=== PATIENT | male | born 1945 | race Caucasian/White ===

== ENCOUNTER 2022-06-05 09:58 | Outpatient (RCR) | payer MEDICARE, SELFPAY ==
[2022-06-05 10:11] VITALS: BP 154/75; PULSE 64; RESP 16; TEMP 36.3; O2SAT 96
[2022-06-05] MEDS: SODIUM CHLORIDE 0.9 % (FLUSH) 10 ML SYRINGE IVF (11:16)
[2022-06-05] MEDS: 0.9 % SODIUM CHLORIDE 250 ml IV (11:16)
== END 2022-06-15 23:59 | disposition home or self-care (01) ==
LOC: CCIC 09:58
PROVIDERS: PCP Family Medicine; Visit Provider Clinical Nurse Specialist
DX: C90.00 Multiple myeloma not having achieved remission (principal)
CPT/HCPCS: 99211; J7050

== ENCOUNTER 2022-12-17 10:00 | Outpatient (RCR) | payer MEDICARE, SELFPAY ==
[2022-08-08] MEDS: HEPARIN 500 UNIT/5 ML SYRINGE IVF (10:10)
[2022-08-08] MEDS: SODIUM CHLORIDE 0.9 % (FLUSH) 10 ML SYRINGE IVF (10:10)
[2022-10-14] MEDS: SODIUM CHLORIDE 0.9 % (FLUSH) 10 ML SYRINGE IVF (10:34)
[2022-10-14] MEDS: HEPARIN 500 UNIT/5 ML SYRINGE IVF (10:34)
[2022-12-17] MEDS: SODIUM CHLORIDE 0.9 % (FLUSH) 10 ML SYRINGE IVF (10:07)
[2022-12-17] MEDS: HEPARIN 500 UNIT/5 ML SYRINGE IVF (10:07)
== END 2023-02-04 23:59 | disposition home or self-care (01) ==
LOC: CCIC 10:00
PROVIDERS: PCP Family Medicine; Referring Provider Family Medicine; Visit Provider Clinical Nurse Specialist
DX: C90.00 Multiple myeloma not having achieved remission (principal)
CPT/HCPCS: 99211; J1642

== ENCOUNTER 2023-07-31 11:00 | Outpatient (RCR) | payer MEDICARE, SELFPAY ==
[2023-02-20] MEDS: SODIUM CHLORIDE 0.9 % (FLUSH) 10 ML SYRINGE IVF (13:20)
[2023-02-20] MEDS: HEPARIN 500 UNIT/5 ML SYRINGE IVF (13:20)
[2023-04-29] MEDS: HEPARIN 500 UNIT/5 ML SYRINGE IVF (13:53)
[2023-04-29] MEDS: SODIUM CHLORIDE 0.9 % (FLUSH) 10 ML SYRINGE IVF (13:53)
[2023-06-03] MEDS: SODIUM CHLORIDE 0.9 % (FLUSH) 10 ML SYRINGE IVF (10:08)
[2023-06-03] MEDS: HEPARIN 500 UNIT/5 ML SYRINGE IVF (10:08)
[2023-07-31] MEDS: HEPARIN 500 UNIT/5 ML SYRINGE IVF (13:45)
[2023-07-31] MEDS: SODIUM CHLORIDE 0.9 % (FLUSH) 10 ML SYRINGE IVF (13:45)
== END 2023-08-19 23:59 | disposition home or self-care (01) ==
LOC: CCIC 11:00
PROVIDERS: PCP Family Medicine; Referring Provider Family Medicine; Visit Provider Clinical Nurse Specialist
DX: C90.00 Multiple myeloma not having achieved remission (principal)
CPT/HCPCS: 99211; J1642

== ENCOUNTER 2023-08-26 10:35 | Outpatient (RCR) | payer MEDICARE, SELFPAY ==
[2023-08-26] MEDS: SODIUM CHLORIDE 0.9 % (FLUSH) 10 ML SYRINGE IVF (11:06)
[2023-08-26] MEDS: HEPARIN 500 UNIT/5 ML SYRINGE IVF (11:06)
--- NOTE | 2023-10-06 14:26 | ONC.NURNOTE ---
Gene called to ask for process to remove port instructed to call clinic to set up appt with Dr Galindo for removal- placed 05/[address] Galindo call was transferred to the clinics
== END 2024-02-22 23:59 | disposition home or self-care (01) ==
LOC: CCIC 10:35
PROVIDERS: PCP Family Medicine; Referring Provider Family Medicine; Visit Provider Clinical Nurse Specialist
DX: C90.00 Multiple myeloma not having achieved remission (principal)
CPT/HCPCS: 99211; J1642

== ENCOUNTER 2024-01-08 08:01 | Outpatient (CLI) | payer MEDICARE, SELFPAY ==
--- NOTE | 2024-01-08 08:15 | MR_ITS ---
[address] [address] Phone:?[phone] Fax:?[phone] Referring Physician Information: Shahbaz Vo M.D. [address] [facility] [address] Phone:?[phone] Fax:?[phone] Patient:Fatou Gleason D.O.B:?1945 Sex:?Male Phone:?[phone] [facility] MRN:?[id number] Exam Date:?01/08/2024 EXAM: MRI of the LEFT KNEE, without contrast CLINICAL: Left knee effusion. COMPARISONS: X-rays dated 01/01/2024. TECHNICAL: Multiplanar multisequence MRI of the left knee was obtained. SEDATION: None. CONTRAST: None. FINDINGS: Ligaments: ACL: Intact and unremarkable. PCL: Intact and unremarkable. MCL: Intact and unremarkable. LCL: Intact and unremarkable. Posterolateral corner: Popliteus, biceps femoris, iliotibial band, and the popliteofibular ligament appear intact. Posteromedial corner: Semimembranosus, pes anserine tendons and posterior oblique ligament appear intact. Extensor mechanism: Patellar tendon: Intact, without tendinopathy. Quadriceps tendon: Intact, without tendinopathy. Retinacula: Medial and lateral retinacula are intact. Fat pads: Unremarkable infrapatellar Hoffa's, quadriceps and prefemoral fat pads. Patellofemoral joint: Patella: There is mild heterogeneity of the patellar cartilage. No chondral defects identified. Trochlea: No significant chondromalacia. Medial compartment: Medial meniscus: There mild degenerative signal changes involving the posterior horn and body segments. No evidence of discrete meniscal tear. No meniscal displacement. Medial cartilage: No significant chondromalacia. Lateral compartment: Lateral meniscus: There are mild degenerative signal changes within the anterior and posterior horns. No evidence of discrete meniscal tear or meniscal displacement. Lateral cartilage: Mild heterogeneity of the lateral tibial plateau cartilage. No chondral defects identified. Knee joint: Effusion: Physiologic left knee effusion. Intra-articular bodies:?No convincing bodies identified. Popliteal cyst: Small. Bones: No suspicious bone marrow signal alteration or fracture line. IMPRESSION: 1. No evidence of meniscal tear, ligamentous injury, fracture or joint effusion. 2. 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 No chondral defects identified. 3. Small popliteal cyst. JCZ Electronically signed on 01/08/2024 11:32:00 AM by Larry Kamara D.O.
== END 2024-01-08 08:02 | disposition home or self-care (01) ==
PROVIDERS: PCP Family Medicine; Visit Provider Orthopaedic Surgery Sports Medicine
DX: M25.462 Effusion, left knee (principal); M22.42 Chondromalacia patellae, left knee; M71.22 Synovial cyst of popliteal space [Baker], left knee; M23.92 Unspecified internal derangement of left knee
CPT/HCPCS: 73721

== ENCOUNTER 2024-08-30 11:20 | Outpatient (CLI) | payer MEDICARE, SELFPAY ==
--- OUTSIDE RECORDS SUMMARY | 2024-08-30 11:35 | XMS_ITS ---
Author Organization [facility] Address [address] [place] [address] Care Team Providers Care Tool Supervisor Name Role Phone Elsewhere, Pcp Primary Care Provider Unavailabl e Active Problems * This document contains information received from the source organization and may not represent a complete record from that organization. 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 09/12/2019 Pain Cancer Associated 09/09/2019 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 Past Plans Apheresis Plan Name Start Date Discontinue Date Treatment Medications Discontinue Reason Plan Provider MONONUCLEAR CELL COLLECTION 07/27/2019 12/26/2020 No medications scheduled. Therapy Complete Getachew Ruby M.D., Ph.D. Blood Plan Name Start Date Discontinue Date Treatment Medications Discontinue Reason Plan Provider *BLOOD ADMINISTRATION - RED BLOOD CELLS (RBC) - FOR PATIENTS GREATER THAN 35 KG (UNITS) 01/19/2020 01/19/2020 No medications scheduled. Therapy Complete Luz Freed P.A.-C., M.S. *BLOOD ADMINISTRATION - RED BLOOD CELLS (RBC) - FOR PATIENTS GREATER THAN 35 KG (UNITS) 11/29/2019 11/30/2019 No medications scheduled. Therapy Complete Luz Freed P.A.-C., M.S. Flushes/Hydration Plan Name Start Date Discontinue Date Treatment Medications Discontinue Reason Plan Provider VASCULAR ACCESS PATENCY - IMPLANTED VASCULAR ACCESS DEVICE (IVAD) VENOUS NON-VALVED 09/11/2020 10/04/2021 No medications scheduled. Unlisted - VASCULAR ACCESS PATENCY - IMPLANTED VASCULAR ACCESS DEVICE (IVAD) VENOUS NON-VALVED & VASCULAR ACCESS PATENCY - CENTR... 09/08/2019 09/07/2020 No medications scheduled. Therapy Complete - Hematology / Oncology Treatment 1 Plan Name Start Date Discontinue Date Treatment Medications Discontinue Reason Plan Provider Cycles Daratumumab / Pomalidomide / Dexamethasone 9 10/08/2019 daratumumab (Darzalex)pom alidomide (Pomalyst) Therapy Complete Denice Paredes M.D. Treatment not started Daratumumab / Pomalidomide / Dexamethasone 09/27/20 18 11/02/2018 daratumumab (Darzalex)pom alidomide (Pomalyst) Unlisted Denice Paredes M.D. Treatment not started Hematology / Oncology Treatment 2 Plan Name Start Date Discontinue Date Treatment Medications Discontinue Reason Plan Provider Cycles [facility] [id number] ( Cyclophosphamide / Fludarabine / [id number] ) 019 03/19/2021 cycloPHOSphamide (Cytoxan) IVPB in 250 mL (1 g vial) (Cytoxan)fludarabi ne (Fludara) IVPB (Fludara) Unlisted Getachew Ruby M.D., Ph.D. 1 of 1 cycle started Infusion Therapy 1 Plan Name Start Date Discontinue Date Treatment Medications Discontinue Reason Plan Provider immune globulin (IVIG) 07/17/2020 07/26/2020 No medications scheduled. Therapy Complete Luz Freed P.A.-Bella., M.S. immune globulin (IVIG) 06/08/2020 07/17/2020 No medications scheduled. Therapy Complete Getachew Ruby M.D., Ph.D. immune globulin (IVIG) 05/11/2020 05/16/2020 No medications scheduled. Therapy Complete Peyton Portillo APRN, C.N.P., D.N.P. enoxaparin (LOVENOX) 1 time a day 09/08/2019 04/04/2020 No medications scheduled. Therapy Complete Pinky Nelson P.A.-C. ENOXAPARIN (LOVENOX) 1 TIME A DAY 09/06/2019 09/08/2019 No medications scheduled. Therapy Complete Getachew Ruby M.D., Ph.D. Radiation Treatments * No radiation treatments are documented for this patient in [facility]. Treatments may have been administered in another system. 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 N/A N/A N/A No contact on file * Cell Therapy Appointments (07/31/2024 - 09/30/2024) When Visit Type With Description No appointments Lifetime Dose Tracking * Chemical Lifetime Dose Automatic Entry Manual Entr y Radiation 9 mGy 9 mGy 0 mGy Fluoro Time 1.4 minutes 1.4 minutes 0 minutes DAP (uGy-m2) 225.9 uGy-m2 225.9 uGy-m2 0 uGy-m2 Resolved Problems Problem Noted Date Diagnosed Date Resolved Date Thrombosis Deep Vein Lower Extremity Left 09/06/2019 08/29/2020 Neutropenia Drug Induced 10/13/2016
--- OUTSIDE RECORDS SUMMARY | 2024-08-30 11:35 | XMS_ITS ---
Author Organization [facility] Address [address] [place] [address] Care Team Providers Care Medical Record Transcriber Name Role Phone Unavailable Unavailable Unavailable Surgery Details Not on file Complications Check Surgery Details section. Procedure Estimated Blood Loss Check Surgery Details section. Procedure Findings Check Surgery Details section. Procedure Specimens Taken Check Surgery Details section.
--- OUTSIDE RECORDS SUMMARY | 2024-08-30 11:35 | XMS_ITS | Referral Summary ---
Author Organization [facility] Address [address] [place] [id number] Care Team Providers Care Warehouse Coordinator Name Role Phone Elsewhere, Pcp Primary Care Provider Unavailabl e Source Comments Patient records contain information from all sites at [facility]. For routine questions regarding patient records, call [phone] during business hours, M-F 8:00 AM - 5:00 PM Central Time. Record requests for emergency care only can be directed to [phone] at any time.[facility] Encounters Date Type Department Care Team Description 08/16/2024 9:39 AM CDT - 08/16/2024 11:59 PM CDT Hospital Encounter Department of Laboratory Medicine and Pathology, [facility], in [place], [place] [address] [place] [phone] Getachew Ruby M.D., Ph.D. Multiple Myeloma In Remission (HCC) Discharge Disposition: Home or Self Care 08/16/2024 4:00 PM CDT Office Visit Division of Hematology in [address] [phone] Luz Freed P.A.-C., M.S. Multiple Myeloma In Remission (HCC) (Primary Dx) 08/12/2024 9:30 AM CDT Clinical Communication Virtual Review in [place], [place] 200 [place] [address] 07/07/2024 Orders Only Division of Hematology in [place], [place] [address] [place] [address] Do Olmos Multiple Myeloma In Remission (HCC) (Primary Dx) 06/27/2024 10:10 AM CDT - 06/27/2024 11:59 PM CDT Hospital Encounter Department of Laboratory Medicine and Pathology, [facility], in [place], [place] [address] [place] [address] Getachew Ruby M.D., Ph.D. Multiple Myeloma In Remission (HCC) Discharge Disposition: Home or Self Care from Last 3 Months Allergies No known active allergies Medications * This document contains information received from the source organization and may not represent a complete record from that organization. multivitamin tablet Take 1 tablet by mouth daily. 5 Active hydrocortisone (ANUSOL-HC) 2.5 % rectal cream Apply 1 application topically 2 (two) times a day as needed for hemorrhoids. 6 Active melatonin 1 mg tablet Take 10 mg by mouth at bedtime as needed. Active calcium carbonate-vitam in D3 (Calcium 600 with Vitamin D3) 600 mg(1,500mg) -400 unit tablet,chewable Chew 2 tablets daily. Active acetaminophen (TYLENOL) 500 mg tablet Take 1,000 mg by mouth every 6 (six) hours as needed for pain (as needed for back pain). Active acyclovir (ZOVIRAX) 400 mg tablet take one tablet by mouth twice a day 180 tablet 3 4 Active Active Problems Problem Noted Date Diagnosed Date Hemorrhoids External [...] 0 06/10/2016 Cancer Staging:Clinical stage from 11/03/2013: Djoo-2-pqhrtusdodxwp (mg/L): 2.1, Albumin (g/dL): 4.6, ISS: Stage I, High-risk cytogenetics: Unknown, LDH: Elevated - Signed by Irena Portillo R.N. on 03/07/2018 Resolved Problems Problem Noted Date Diagnosed Date Resolved Date Thrombosis Deep Vein Lower Extremity Left 09/06/2019 08/29/2020 Neutropenia Drug Induced 10/13/2016 Immunizations Name Administration Dates Next Due Cholera, historical 04/27/1973 H1N1 All Forms 11/20/2008 HZV (ZOSTAVAX) 08/09/2009 HepA Adult 07/09/2018,09/06/2015 HepB Adult 06/10/2016,05/22/2015 HepB, Unspecified 07/24/2015 Hib (HbOC) (discontinued) 07/24/2015 Hib (PRP-T) (ACTHIB, HIBERIX) 06/10/2016, 015 IPV 06/10/2016,07/24/2015,05/22/2015 Influenza Split 08/22/2015 Influenza TIV (IM) 08/11/2017 Influenza high dose QV(65 ye ars or older) (PF) 08/26/2022 Influenza, Quadrivalent, Adj uvanted, Preservative Free 09/10/2021 PCV13 07/24/2015,05/22/2015 PPSV23 06/10/2016,07/25/2009 RSV: respiratory syncytial v irus (AREXVY) recombinant vaccine 01/14/2024 RZV (SHINGRIX) 06/16/2018,04/13/2018 SARS-COV-2 (COVID-19) - MODERNA(Discontinued) 12/24/2021,07/11/2021 Td Preservative Free (TENIVAC, DECAVAC) 06/10/20 16,07/24/2015 Td, (Adult) Unspecified 08/24/2000 Tdap 05/22/2015 TyVi (inj) 07/09/2018,09/06/2015,04/27/1973 YF 04/27/1974 Social History Tobacco Use Types Packs/Day Years Used Date Smoking Tobacco: Never Passive Smoke Exposure: Past Smokeless Tobacco: Never Tobacco Cessation:Counseling Given: Not Answered Passive Exposure Comments:My Dad Smoked Alcohol Use Standard Drinks/Week Comments Yes 7 (1 standard drink = 0.6 oz pur e alcohol) 1 glass a week Social Connection and Isolation Panel [NHANES] A nswer Date Recorded In a typical week, how many times do you talk on the phone with family, friends, or neighbors? Once a week 09/30/2020 Frequency of Social Gatherings with Friends and Family Not on file 09/30/2020 How often do you attend christian or gnosticist serv ices? Patient declined 09/30/2020 Active Member of Clubs or Organizations Not on f ile 09/30/2020 Attends Club or Organization Meetings Not on mili e 09/30/2020 Are you , , di vorced, , never , or living with a partner? 09/30/2020 AUDIT-C Answer Date Recorded Frequency of Alcohol Consumption Not on file 09/30/2020 Q2: How many drinks containi ng alcohol do you have on a typical day when you are drinking? 1 or 2 09/30/2020 Q3: How often do you have si x or more drinks on one occasion? Never 09/30/2020 Overall Financial Resource Strain (CARDIA) Answe r Date Recorded Difficulty of Paying Living Expenses Not hard at all 09/07/2019 [facility] - Occupational Stress Questionnaire Answer Date Recorded Do you feel stress - tense, restless, nervous, or anxious, or unable to sleep at night because your mind is troubled all the time - these days? Not at all 09/30/2020 Exercise Vital Sign Answer Date Recorde d Days of Exercise per Week Not on file 2022 On average, how many minutes do you engage in exercise at this level? 30 min 09/24/2023 Hunger Vital Sign Answer Date Recorded Within the past 12 months, y ou worried that your food would run out before you got the money to buy more. Never true 09/24/20 23 Within the past 12 months, t he food you bought just didn't last and you didn't have money to get more. Never true 09/24/2023 PRAPARE - Transportation Answer Date Re corded In the past 12 months, has l ack of transportation kept you from medical appointments or from getting medications? No 07/2023 In the past 12 months, has l ack of transportation kept you from meetings, work, or from getting things needed for daily living? No 09/24/2023 Nutrition Answer Date Recorded On average, how many serving s of fruits and vegetables do you eat per day (serving size is equal to 1 cup or approximately the size of a tennis ball)? 3-5 09/24/2023 Dental Answer Date Recorded Dental: Regular Dentist Yes 11/12/20 22 Housing Stability Answer Date Recorded What is your living situation today? I have a [facility] place to live 09/24/2023 Education Answer Date Recorded What is the highest level of school you have completed or the highest degree you have received? Bachelor's degree (e.g., BA, AB, BS) 09/30/2020 Sex and Gender Information Value Date Recorded Sex Assigned at Male 03/22/2020 11:41 AM CDT Legal Sex Male 4:37 AM RN MENTAL HEALTH Gender Identity Male 03/22/2020 11:41 AM CDT Sexual Orientation Straight 03/22/2020 11 :41 AM CDT Last Filed Vital Signs Vital Sign Reading Time Taken Comments Blood Pressure 167/69 08/16/2024 3:47 PM CDT Pulse 61 08/16/2024 3:47 PM CDT Temperature 35.6 ??C (96.1 ??F) 08/16/2024 3:47 PM CD T Respiratory Rate 16 08/16/2024 3:47 PM CDT Oxygen Saturation 96% 08/16/2024 3:47 PM CDT Inhaled Oxygen Concentration - - Weight 78.5 kg (173 lb 2.7 oz) 08/16/2024 3:47 P M CDT Height 168.2 cm (5' 6.22) 08/16/2024 3:47 PM CD T Body Mass Index 27.77 08/16/2024 3:47 PM CDT Plan of Treatment Not on file Medical Devices Implanted Type Area Photonic Laboratory Technician Device Identifier Shelf Expiration Date Model / Serial / Lot Implantable Port-05/23/2019 Implanted:05/23 (Quantity not on file) Implantable Port Right: Chest Description:Bard Power Port Card with implanted date recorded as 05/23/2019 (Port placed at outside facility in [facility] per patient report). Ocular Lens Ocular Lens Eye Ocular Lens Ocular Lens Eye Procedures Procedure Name Priority Date/Time Associated Diagnosis Comments PHOSPHORUS (INORGANIC), S Routine 08/16/2024 10:12 AM CDT Multiple Myeloma In Remission (HCC) URIC ACID, S/P Routine 08/16/2024 10:12 AM CDT Multiple Myeloma In Remission (HCC) PROTEIN, TOTAL, S/P Routine 08/16/2024 1 0:12 AM CDT Multiple Myeloma In Remission (HCC) GLUCOSE, RANDOM, S/P Routine 08/16/2024 10:12 AM CDT Multiple Myeloma In Remission (HCC) LACTATE DEHYDROGENASE (LD), S Routine 08/16/2024 10:12 AM CDT Multiple Myeloma In Remission (HCC) BUN (BLOOD UREA NITROGEN), S/P Routine 08/16/2024 10:12 AM CDT Multiple Myeloma In Remission (HCC) BILIRUBIN, TOT, S/P Routine 08/16/2024 1 0:12 AM CDT Multiple Myeloma In Remission (HCC) ALANINE AMINOTRANSFERASE (ALT), S/P Routine 08/16/2024 10:12 AM CDT Multiple Myeloma In Remission (HCC) IMMUNOGLOBULIN E (IGE), S Routine 08/16/2024 10:12 AM CDT Multiple Myeloma In Remission (HCC) IMMUNOGLOBULIN D (IGD), S Routine 08/16/2024 10:12 AM CDT Multiple Myeloma In Remission (HCC) QUANTITATIVE M-PROTEIN STUDY, S Routine 08/16/2024 10:12 AM CDT Multiple Myeloma In Remission (HCC) SODIUM, S/P Routine 08/16/2024 10:12 AM CDT Multiple Myeloma In Remission (HCC) POTASSIUM, S/P Routine 08/16/2024 10:12 AM CDT Multiple Myeloma In Remission (HCC) IMMUNOGLOBULIN FREE LIGHT CHAINS, S Routine 08/16/2024 10:12 AM CDT Multiple Myeloma In Remission (HCC) CREATININE WITH EGFR, S/P Routine 08/16/2024 10:12 AM CDT Multiple Myeloma In Remission (HCC) CBC NO CALL BACK, REFLEX T/S Routine 08/16/2024 10:12 AM CDT Multiple Myeloma In Remission (HCC) CALCIUM, TOT, S/P Routine 08/16/2024 10: 12 AM CDT Multiple Myeloma In Remission (HCC) ASPARTATE AMINOTRANSFERASE (AST), S/P Routine 08/16/2024 10:12 AM CDT Multiple Myeloma In Remission (HCC) ALKALINE PHOSPHATASE, S/P Routine 08/16/2024 10:12 AM CDT Multiple Myeloma In Remission (HCC) ALBUMIN, S/P Routine 08/16/2024 10:12 AM CDT Multiple Myeloma In Remission (HCC) M-PROTEIN MASS-FIX, 24 HR, U Routine 08/03/2024 6:30 AM CDT ELECTROPHORESIS, PROTEIN, 24 HR, U Routine 08/03/2024 6:30 AM CDT Multiple Myeloma In Remission (HCC) LIPID PANEL, S Routine 12/31/2020 10:05 AM RN MENTAL HEALTH Screening Lipid URINALYSIS WITH MICROSCOPIC STAT 12/26/2019 10:12 PM RN MENTAL HEALTH 25-HYDROXYVITAMIN D2 AND D3, S Routine 06/10/2016 7:28 AM CDT THYROID FUNCTION CASCADE, S Routine 09/21/2015 10:54 AM RN MENTAL HEALTH PULMONARY FUNCTION TESTS Routine 014 8:10 AM CDT from Last 3 Months or Most Recently Relevant to Health Maintenance Results * (ABNORMAL) Quantitative M-protein Study (08/16/2024 10:12 AM CDT) Immunoglobulin A (IgA), S 106 61 - 356 mg/dL 08/16/2024 5:38 PM CDT [facility] Immunoglobulin M (IgM), S 309(H) 37 - 286 mg/dL 08/16/2024 5:37 PM CDT [facility] Immunoglobulin G (IgG), S 748(L) 767 - 1590 mg/dL 08/16/2024 5:37 PM CDT [facility] Therapeutic Antibody Administered? Unspecified 08/16/2024 1:55 PM CDT [facility] Flag, M-protein Isotype Negative Negative 08/17/2024 2:54 PM CDT [facility] QMPTS Interpretation No monoclonal protein detected. 08/17/2024 2:54 PM CDT [facility] Comment: ----ADDITIONAL INFORMATION---- The submitted sample was assayed by five separate immunopurifications for IgG, IgA, IgM, kappa and lambda. ??The result reflects the findings of either no monoclonal protein detected or those monoclonal immunoglobulins that were detected. This test was developed and its performance characteristics determined by [facility] in a manner consistent with CLIA requirements. This test has not been cleared or approved by the U.S. Food and Drug Administration. Blood (Blood, Venous) 08/16/2024 10:12 AM CDT 08/16/2024 3:17 PM CDT Narrative [facility] - 08/17/2024 2:54 PM CDT Specimen Information: Specimen ID: [id number] Specimen Type: Blood Specimen Collection Start Date: 08/16/2024 10:12 AM Specimen Received Date: 08/16/2024 ??3:17 PM Specimen ID: [id number] Specimen Type: Blood Specimen Collection Start Date: 08/16/2024 10:12 AM Specimen Received Date: 08/16/2024 ??1:55 PM us Getachew Ruby M.D., Ph.D. LAB BLOOD ADD-ON Final Result [facility] [address] [place] [address] [facility] [address] [place] [address] [facility] [address] [place] [address] [place] [address] * (ABNORMAL) CBC no call back, reflex T/S HGB <8 (08/16/2024 10:12 AM CDT) Hemoglobin 15.1 13.2 - 16.6 g/dL 08/16/2024 11:42 AM CDT DTL Hematocrit 44.6 38.3 - 48.6 % 08/16/2024 11:42 AM CDT DTL Erythrocytes 4.64 4.35 - 5.65 x10(12)/L 08/16/2024 11:42 AM CDT DTL MCV 96.1 78.2 - 97.9 fL 08/16/2024 11:42 AM CDT DTL RBC Distrib Width 12.4 11.8 - 14.5 % 08/16/2024 11:42 AM CDT DTL Platelet Count 115(L) 135 - 317 x10(9)/L 08/16/2024 11:42 AM CDT DTL Leukocytes 4.4 3.4 - 9.6 x10(9)/L 08/16/2024 11:42 AM CDT DTL Neutrophils 2.56 1.56 - 6.45 x10(9)/L 08/16/2024 11:42 AM CDT DHPM Lymphocytes 1.29 0.95 - 3.07 x10(9)/L 08/16/2024 11:42 AM CDT DTL Monocytes 0.46 0.26 - 0.81 x10(9)/L 08/16/2024 11:42 AM CDT DTL Eosinophils 0.03 0.03 - 0.48 x10(9)/L 08/16/2024 11:42 AM CDT DTL Basophils <0.03 0.01 - 0.08 x10(9)/L 08/16/2024 11:42 AM CDT DTL Blood (Blood, Venous) 08/16/2024 10:12 AM CDT 08/16/2024 10:37 AM CDT Getachew Ruby M.D., Ph.D. LAB BLOOD NON ADD-ON Fi nal Result [facility] [address] [place] [address], [place] DTL [facility] [address] [place] [address] DHPM [facility] [address] [place] [address] * Immunoglobulin D (IgD) (08/16/2024 10:12 AM CDT) Immunoglobulin D (IgD), S <2 <=10 mg/dL 08/17/2024 9:30 AM CDT [facility] Blood (Blood, Venous) 08/16/2024 10:12 AM CDT 08/17/2024 6:17 AM CDT us Getachew Ruby M.D., Ph.D. LAB BLOOD ADD-ON Final Result [facility] [address] [place] [address] [facility] [address] [place] [address] * Immunoglobulin Free Light Chains (08/16/2024 10:12 AM CDT) [place] Free Light Chain, S 1.26 0.3300 - 1.94 mg/dL 08/16/2024 3:36 PM CDT [facility] Lambda Free Light Chain, S 1.28 0.5700 - 2.63 mg/dL 08/16/2024 3:37 PM CDT [facility] [place]/Lambda FLC Ratio 0.9844 0.2600 - 1.65 08/16/2024 3:37 PM CDT [facility] Blood (Blood, Venous) 08/16/2024 10:12 AM CDT 08/16/2024 1:59 PM CDT us Getachew Ruby M.D., Ph.D. LAB BLOOD ADD-ON Final Result [facility] [address] [place] [address] [facility] [address] [place] [address] * Uric Acid (08/16/2024 10:12 AM CDT) Uric Acid, S 6.4 3.7 - 8.0 mg/dL 08/16/2024 11:13 AM CDT DTL Blood (Blood, Venous) 08/16/2024 10:12 AM CDT 08/16/2024 10:51 AM CDT us Getachew Ruby M.D., Ph.D. LAB BLOOD ADD-ON Final Result [facility] [address] [place] [address], [facility] [address] [place] [address] * BUN (Blood Urea Nitrogen) (08/16/2024 10:12 AM CDT) BUN (Blood Urea Nitrogen), S 17 8 - 24 mg/dL 08/16/2024 11:13 AM CDT DTL Blood (Blood, Venous) 08/16/2024 10:12 AM CDT 08/16/2024 10:51 AM CDT Getachew Ruby M.D., Ph.D. LAB BLOOD ADD-ON Final Result [facility] [address] [place] [address], [facility] [address] [place] [address] * ALT (Alanine Aminotransferase) (08/16/2024 10:12 AM CDT) Alanine Aminotransferase (ALT), S 20 7 - 55 U/L 08/16/2024 11:13 AM CDT DTL Blood (Blood, Venous) 08/16/2024 10:12 AM CDT 08/16/2024 10:51 AM CDT Getachew Ruby M.D., Ph.D. LAB BLOOD ADD-ON Final Result [facility] [address] [place] [address] * AST (Aspartate Aminotransferase) (08/16/2024 10:12 AM CDT) Aspartate Aminotransferase (AST), S 25 8 - 48 U/L 08/16/2024 11:13 AM CDT DT Blood (Blood, Venous) 08/16/2024 10:12 AM CDT 08/16/2024 10:51 AM CDT Getachew Ruby M.D., Ph.D. LAB BLOOD ADD-ON Final Result Performing Organization Address City/[facility]/ZIP Co de Phone Number [facility] [address] [place], [place] [id number] [place] [address] 200 [place] [address] * Sodium (08/16/2024 10:12 AM CDT) Sodium, S 141 135 - 145 mmol/L 08/16/2024 11:13 AM CDT DT Blood (Blood, Venous) 08/16/2024 10:12 AM CDT 08/16/2024 10:51 AM CDT Getachew Ruby M.D., Ph.D. LAB BLOOD ADD-ON Final Result [facility] [address] [place], [place] [phone] [place] [address] [address] [place] [address] * Protein, Total (08/16/2024 10:12 AM CDT) Protein, Total, S 6.7 6.3 - 7.9 g/dL 08/16/2024 11:13 AM CDT DTL Blood (Blood, Venous) 08/16/2024 10:12 AM CDT 08/16/2024 10:51 AM CDT Getachew Ruby M.D., Ph.D. LAB BLOOD ADD-ON Final Result [facility] [address] [place], [place] [phone] [place] [address] 200 [place] [address] * Potassium (08/16/2024 10:12 AM CDT) Pathologist [facility] Potassium, S 4.9 3.6 - 5.2 mmol/L 08/16/2024 11:13 AM CDT DT Blood (Blood, Venous) 08/16/2024 10:12 AM CDT 08/16/2024 10:51 AM CDT Getachew Ruby M.D., Ph.D. LAB BLOOD ADD-ON Final Result [facility] [address] [place], [place] [phone] [place] [address] 200 [place] [address] * Phosphorus Inorganic (08/16/2024 10:12 AM CDT) Phosphorus (Inorganic), S 3.5 2.5 - 4.5 mg/dL 08/16/2024 11:13 AM CDT DTL Blood (Blood, Venous) 08/16/2024 10:12 AM CDT 08/16/2024 10:51 AM CDT Getachew Ruby M.D., Ph.D. LAB BLOOD ADD-ON Final Result [facility] [address] [place] [address], [facility] [address] [place] [address] * Alkaline Phosphatase (08/16/2024 10:12 AM CDT) Alkaline Phosphatase, S 55 40 - 129 U/L 08/16/2024 11:13 AM CDT DTL Blood (Blood, Venous) 08/16/2024 10:12 AM CDT 08/16/2024 10:51 AM CDT Getachew Ruby M.D., Ph.D. LAB BLOOD ADD-ON Final Result Performing Organization Address City/[facility] Co de Phone Number [facility] [address] [place] [address], [facility] 200 [place] [address] * (ABNORMAL) LD (Lactate Dehydrogenase) (08/16/2024 10:12 AM CDT) Lactate Dehydrogenase (LD), S 237(H) 122 - 222 U/L 08/16/2024 11:13 AM CDT DTL Blood (Blood, Venous) 08/16/2024 10:12 AM CDT 08/16/2024 10:51 AM CDT Getachew Ruby M.D., Ph.D. LAB BLOOD NON ADD-ON Fi nal Result Performing Organization Address City/[facility]/ZIP Co de Phone Number [facility] [address] [place] [address], [facility] [address] [place] [address] * Glucose, Random (08/16/2024 10:12 AM CDT) Glucose, S 97 70 - 140 mg/dL 08/16/2024 11:13 AM CDT DT Blood (Blood, Venous) 08/16/2024 10:12 AM CDT 08/16/2024 10:51 AM CDT Getachew Ruby M.D., Ph.D. LAB BLOOD TROPONIN Demetrice l Result Performing Organization Address City/[facility]/ZIP Co de Phone Number [facility] [address] [place] [address], [facility] [address] [place] [address] * Immunoglobulin E (IgE) (08/16/2024 10:12 AM CDT) Immunoglobulin E (IgE), S 10.5 <=214 kU/L 08/16/2024 5:54 PM CDT [facility] Blood (Blood, Venous) 08/16/2024 10:12 AM CDT 08/16/2024 3:55 PM CDT Getachew Ruby M.D., Ph.D. LAB BLOOD ADD-ON Final Result Performing Organization Address [facility] Co de Phone Number [facility] [address] [place] [address] [facility] [address] [place] [address] * Creatinine with Estimated GFR (08/16/2024 10:12 AM CDT) Creatinine 1.20 0.74 - 1.35 mg/dL 08/16/2024 11:13 AM CDT DTL Estimated GFR (eGFR) 61 >=60 mL/min/BSA 08/16/2024 11:13 AM CDT DTL Comment: Estimated GFR calculated using the 2020 CKD_EPI creatinine equation. Blood (Blood, Venous) 08/16/2024 10:12 AM CDT 08/16/2024 10:51 AM CDT Getachew Ruby M.D., Ph.D. LAB BLOOD ADD-ON Final Result [facility] [address] [place] [address], [facility] [address] [place] [address] * Calcium, Total (08/16/2024 10:12 AM CDT) Calcium, Total, S 9.5 8.8 - 10.2 mg/dL 08/16/2024 11:13 AM CDT DTL Blood (Blood, Venous) 08/16/2024 10:12 AM CDT 08/16/2024 10:51 AM CDT Getachew Ruby M.D., Ph.D. LAB BLOOD ADD-ON Final Result Performing Organization Address City/[facility]/ZIP Co de Phone Number [facility] [address] [place] [address], [facility] [address] [place] [address] * (ABNORMAL) Bilirubin, Total (08/16/2024 10:12 AM CDT) Bilirubin, Total, S 1.4(H) 0.0 - 1.2 mg/dL 08/16/2024 11:13 AM CDT DTL Blood (Blood, Venous) 08/16/2024 10:12 AM CDT 08/16/2024 10:51 AM CDT Getachew Ruby M.D., Ph.D. LAB BLOOD ADD-ON Final Result [facility] [address] [place] [address], [facility] 200 [place] [address] * Albumin (08/16/2024 10:12 AM CDT) Albumin, S 4.6 3.5 - 5.0 g/dL 08/16/2024 11:13 AM CDT DTL Blood (Blood, Venous) 08/16/2024 10:12 AM CDT 08/16/2024 10:51 AM CDT Getachew Ruby M.D., Ph.D. LAB BLOOD ADD-ON Final Result Performing Organization Address [facility] Co de Phone Number [facility] [address] [place] [address], [place] DTL [facility] [address] [place] [address] * M-protein Isotype, Mass-Fix Matrix-Assisted Laser Desorption/Ionization Czzd-tx-Xygyxn Mass Spectrometry, 24 hour, Urine (08/03/2024 6:30 AM CDT) Flag M-protein Isotype MS, 24 HR, U Negative Negative 08/11/2024 3:52 PM CDT [facility] M-protein Isotype MS, 24 HR, U No monoclonal protein detected. 08/11/2024 3:52 PM CDT [facility] Comment: ----ADDITIONAL INFORMATION---- The submitted sample was assayed by five separate immunopurifications for IgG, IgA, IgM, kappa and lambda. ??The result reflects the findings of either no monoclonal protein detected or those monoclonal immunoglobulins that were detected. This test was developed and its performance characteristics determined by [facility] in a manner consistent with CLIA requirements. This test has not been cleared or approved by the U.S. Food and Drug Administration. Urine 08/03/2024 6:30 AM CDT 08/05/2024 2:51 PM CDT Narrative Resulting Agency Comment Mailed In Specimen Getachew Ruby M.D., Ph.D. LAB URINE ORDERABLES Fi nal Result Performing Organization Address [facility]/ZIP Co de Phone Number [facility] [address] [place] [address] [facility] [address] [place] [address] [place] [address] * Electrophoresis, Protein, 24 hour, Urine (08/03/2024 6:30 AM CDT) Total Protein, 24 HR, U 78 <229 mg/24 h 08/05/2024 1:17 PM CDT DTL Collection Duration 24 h 08/05/2024 10:59 AM CDT DTL Urine Volume 1550 mL 08/05/2024 10:59 AM CDT DTL Albumin, mg/24 h 30.4 mg/24 h 08/09/2024 9:04 AM CDT [facility] Alpha-1 globulin, mg/24 h 4.7 mg/24 h 08/09/2024 9:04 AM CDT [facility] Alpha-2 globulin, mg/24 h 14.0 mg/24 h 08/09/2024 9:04 AM CDT [facility] Beta globulin, mg/24 h 17.9 mg/24 h 08/09/2024 9:04 AM CDT [facility] Gamma globulin, mg/24 h 11.7 mg/24 h 08/09/2024 9:04 AM CDT [facility] A/G Ratio 0.63 08/09/2024 9:04 AM CDT [facility] Impression All fractions present, no apparent M-spike. See Isotype. 08/09/2024 9:04 AM CDT [facility] Urine (Urine, 24 Hours) 08/03/2024 6:30 AM CDT 08/05/2024 2:51 PM CDT Narrative Resulting Agency Comment Mailed In Specimen Getachew Ruby M.D., Ph.D. LAB URINE ORDERABLES Fi nal Result [facility] [address] [place] [address] [facility] [address] [place] [address] [facility] [address] [place] [address] [place] [address] * (ABNORMAL) Lipid Panel (12/31/2020 10:05 AM RN MENTAL HEALTH) [facility] Cholesterol, Total 179 mg/dL 2020 1:05 PM RN MENTAL HEALTH DTL Comment: ----REFERENCE VALUE---- Desirable: < 200 Borderline high: 200 - 239 High: > or = 240 Triglycerides 209(H) mg/dL 12/31/2020 1:05 PM RN MENTAL HEALTH DTL Comment: ----REFERENCE VALUE---- Normal: <150 Borderline high: 150-199 High: 200-499 Very high: > or =500 Cholesterol, HDL, S 59 >=40 mg/dL 12/31/2020 1:05 PM [facility] Calculated LDL 78 mg/dL 12/31/2020 1:05 PM [facility] Comment: ----REFERENCE VALUE---- Desirable: <100 Above Desirable: 100-129 Borderline high: 130-159 High: 160-189 Very high: > or =190 Cholesterol, Non-HDL, Calculated 120 mg/dL 12/31/2020 1:05 PM [facility] Comment: ----REFERENCE VALUE---- Desirable: <130 Above Desirable: 130-159 Borderline high: 160-189 High: 190-219 Very high: > or =220 Blood (Blood, Venous) 12/31/2020 10:05 AM RN [facility] 12/31/2020 12:38 PM [facility] Luz Freed P.A.-C., M.S. LAB BLOOD ADD[place] [address], [place] [address] * (ABNORMAL) Urinalysis with Microscopic: Urine, Midstream (12/26/2019 10:12 PM RN [facility]) Source Midstream 12/26/2019 10:37 PM RN [facility] Appearance Normal Normal 12/27/2019 1:58 AM RN [facility] Osmolality, U 397 150 - 1150 mOsm/kg 12/27/2019 12:33 AM [facility] pH, U 5.9 4.5 - 8.0 12/27/2019 12:33 AM [facility] Comment: ----ADDITIONAL INFORMATION---- This test was developed and its performance characteristics determined by [facility] in a manner consistent with CLIA requirements. This test has not been cleared or approved by the [place]. Food and Drug Administration. Glucose 3 0 - 15 mg/dL 12/27/2019 1:58 AM [facility] Protein, U 21 <26 mg/dL 12/27/2019 1:58 AM [facility] Comment: ----ADDITIONAL INFORMATION---- On 05/12/2017 the total protein assay method changed resulting in approximately a 15% increase in protein values. Protein/Osmolality 0.53(H) <0.42 Ratio 12/27 1:58 AM [facility] Comment: ----ADDITIONAL INFORMATION---- On 05/12/2017 the total protein assay method changed resulting in approximately a 15% increase in protein values. Predicted 24 Hr Protein 513 mg/24 h 12/27/2019 1:58 AM [facility] Predicted Range 163-1617 mg/24 h 0 1:58 AM RN [facility] Hemoglobin, QL Negative Negative 12/26/2019 11:18 PM RN [facility] Urine (Urine, Midstream) 12/26/2019 10:12 PM RN [facility] 12/26/2019 10:37 PM [facility] Raf Oshea M.D. LAB URINE ORDERABLES Final Result Performing Organization Address City/State/[facility] Co de Phone Number [facility] [address] [place] [address], [facility]IGRE [facility] [address] [place] [address] * 25-Hydroxyvitamin D2 and D3 (06/10/2016 7:28 AM CDT) 25-Hydroxy D Total 47 SeeComment NG/ML [facility] Comment: ? REFERENCE VALUE ? 25-HYDROXY D TOTAL (D2+D3) Optimum levels in the healthy ? population are 20-50, patients with bone disease may ? benefit from higher levels within this range. ? 25-Hydroxy D2 <4.0 NG/ML [facility] 25-Hydroxy D3 47 NG/ML [facility] 06/10/2016 7:28 AM CDT 06/10/2016 7:28 AM CDT us Getachew Ruby M.D., Ph.D. LAB BLOOD ADD-ON Final Result [facility] [address] [place] [address], [facility] * Thyroid Function [place] (09/21/2015 10:54 AM RN [facility]) TSH, Sensitive 3.9 0.3 - 4.2 MIU/L [facility] 09/21/2015 10:5 4 AM RN [facility] 09/21/2015 10:54 AM [facility] Getachew Ruby M.D., Ph.D. LAB BLOOD ADD-ON Final Result Performing Organization Address City/[facility]/ZIP Co de Phone Number [facility] [address] * Pulmonary Function Tests (03/31/2014 8:10 AM CDT) 03/31/2014 8:10 AM CDT us Historical Provider PFT ORDERABLES Final Result Performing Organization Address [facility] Co de Phone Number [facility] [address] from Last 3 Months or Most Recently Relevant to Health Maintenance Insurance [facility] Advance Directives For more information, please contact: [phone] * Full Code (Latest Code Status on File) Date Activated Date Inactivated Comments 12/27/2019 2:33 AM 12/29/2019 3:20 PM Question Answer Comments Full Code: Discussed * Full Code Date Activated Date Inactivated Comments 10/03/2019 11:11 AM 10/08/2019 2:38 PM Question Answer Comments Full Code: Discussed * Full Code Date Activated Date Inactivated Comments 09/13/2019 4:17 PM 09/23/2019 2:23 PM Question Answer Comments Full Code: Discussed Care Teams Warehouse Coordinator Relationship Specialty Start Date End Date Elsewhere, Pcp PCP - General Family Medicine 06/30/23
--- OUTSIDE RECORDS SUMMARY | 2024-08-30 11:35 | XMS_ITS | Clinical Summary ---
Author Organization [facility] Address [address] [place] [address] Care Team Providers Care Repair Supervisor Name Role Phone Elsewhere, Pcp Primary Care Provider Unavailabl e Source Comments Patient records contain information from all sites at [facility]. For routine questions regarding patient records, call [phone] during business hours, M-F 8:00 AM - 5:00 PM Central Time. Record requests for emergency care only can be directed to [phone] at any time.[facility] Allergies No known active allergies Medications * [...] 0 06/10/2016 Cancer Staging:Clinical stage from 11/03/2013: Fyzj-[id number]-leaaeyxxlmsgy (mg/L): 2.1, Albumin (g/dL): 4.6, ISS: Stage I, High-risk cytogenetics: Unknown, LDH: Elevated - Signed by Irena Portillo RJoel on 03/07/2018 Resolved Problems Problem Noted Date Diagnosed Date Resolved Date Thrombosis Deep Vein Lower Extremity Left 09/06/2019 08/29/2020 Neutropenia Drug Induced 10/13/2016 Encounters Date Type Department Care Team Description 08/16/2024 4:00 PM CDT Office Visit Division of Hematology in [address] [phone] Luz Freed P.A.-C., M.S. Multiple Myeloma In Remission (HCC) (Primary Dx) 08/16/2024 9:39 AM CDT - 08/16/2024 11:59 PM CDT Hospital Encounter Department of Laboratory Medicine and Pathology, [facility], in [place], [place] [address] [place] [phone] Getachew Ruby M.D., Ph.D. Multiple Myeloma In Remission (HCC) Discharge Disposition: Home or Self Care 08/12/2024 9:30 AM CDT Clinical Communication Virtual Review in [place], [place] [address] [place] [address] 07/07/2024 Orders Only Division of Hematology in [place], [place] [address] [place] [address] Do Olmos Multiple Myeloma In Remission (HCC) (Primary Dx) 06/27/2024 10:10 AM CDT - 06/27/2024 11:59 PM CDT Hospital Encounter Department of Laboratory Medicine and Pathology, [facility], in [place], [place] [address] [place] [address] Getachew Ruby M.D., Ph.D. Multiple Myeloma In Remission (HCC) Discharge Disposition: Home or Self Care from Last 3 Months Immunizations Name Administration Dates Next Due Cholera, [...] Tdap 05/22/2015 TyVi (inj) 07/09/2018,09/06/2015,[birth year]/27/1974 YF 04/27/1974 Family History Medical History Relation Name Comments Stroke Father Leukemia Mother No Known Problems Sister Relation Name Status Comments Father Mother Sister Social History Tobacco Use Types Packs/Day Years [...] file 09/30/2020 How often do you attend druze or jew serv ices? Patient declined 09/30/2020 Active Member [...] Living Expenses Not hard at all 09/07/2019 [facility] - Occupational Stress [...] Date Recorded Dental: Regular Dentist Yes 11/12/20 Housing Stability Answer Date Recorded What is your living situation today? [facility] 09/24/2023 Education Answer Date Recorded What is the highest level of school you have completed or the highest degree you have received? Bachelor's degree (e.g., BA, AB, BS) 09/30/2020 Sex and Gender Information Value Date Recorded Sex Assigned at Male 03/22/2020 11:41 AM CDT Legal Sex Male 4:37 AM RUBBER TESTER Gender Identity Male 03/22/2020 11:41 AM CDT [...] 08/16/2024 3:47 PM CDT Plan of Treatment Health Maintenance Due Date Last Done Comments Bone Density Scan Monitoring 1945 Dental Prophylaxis 1945 Dilated Eye Exam 1944 PSA: Prostate Cancer Screening 1944 Spirometry with DLCO or PFT 03/31/2015 03/31/2014, 0 03/31/2014 Thyroid Function [place] 09/21/2016 09/21/2015 Vitamin D Testing 06/10/2017 06/10/2016, 09/21/2015 Urinalysis 06/25/2020 12/26/2019, 1101/2019, 09/21/2015, Additional history exists Depression Screening (Annual PHQ-2) 11/16/2023 Fall Risk Screen (Annual) 11/16/2023 Lipid (Cholesterol) Screening 02/27/2024 02/26/2023, 12/31/2020 COVID-19 Vaccine (2023-12 5 season) 2024 03/30/2023, 09/01/2022, 12/24/2021, Additional history exists Influenza Vaccine (#1) 2024 , 08/26/2022, 09/10/2021, Additional history exists Serum Protein Electrophoresi s (SPEP) 08/16/2025 08/16/2024, 08/03/2024, 05/05/2024, Additional history exists DTaP,Tdap,and Td Vaccines (5 - Td or Tdap) 03/16/2033 03/16/2023, 06/10/2016, 07/24/2015, Additional history exists Hepatitis B Vaccines Completed 06/10/2016, 07/24/2015, 05/22/2015 Pneumococcal vaccine (65+ years) Completed 06/10/2016, 07/24/2015, 05/22/2015, Additional history exists Hepatitis A Vaccines Completed 07/09/2018, 09/06/20 15 Zoster Vaccines Completed 07/17/2018, 11/2017, 04/13/2018, Additional history exists RSV vaccine - (32-3 6 weeks) or 60+ years Completed 01/14/2024 HPV Vaccines Aged Out No longer eligi ble based on patient's age to complete this topic Medical Devices Implanted Type Area Loop Sewer Device Identifier Shelf Expiration Date Model / [...] LIPID PANEL, S Routine 12/31/2020 10:05 AM RUBBER TESTER Screening Lipid URINALYSIS WITH MICROSCOPIC STAT 12/26/2019 10:12 PM RUBBER TESTER 25-HYDROXYVITAMIN D2 AND D3, S Routine 06/10/2016 7:28 AM CDT THYROID FUNCTION CASCADE, S Routine 09/21/2015 10:54 AM RUBBER TESTER PULMONARY FUNCTION TESTS Routine 014 8:10 AM [...] developed and its performance characteristics determined by [facility] in a manner consistent with CLIA requirements. This test has not been cleared or approved by the U.S. Food and Drug Administration. Blood (Blood, Venous) 08/16/2024 10:12 AM CDT 08/16/2024 3:17 PM CDT Narrative [facility] - 08/17/2024 2:54 PM CDT Specimen Information: Specimen ID: [id number] Specimen Type: Blood Specimen Collection Start Date: 08/16/2024 10:12 AM Specimen Received Date: 08/16/2024 ??3:17 PM Specimen ID: [id number] Specimen Type: Blood Specimen Collection Start Date: 08/16/2024 10:12 AM Specimen Received Date: 08/16/2024 ??1:55 PM us Getachew Ruby M.D., Ph.D. LAB BLOOD ADD-ON Final Result [facility] [address] [place] [address] [facility] [address] [place] [address] [facility] [address] [place] [address] [place] [address] * (ABNORMAL) CBC no call back, reflex [...] LAB BLOOD NON ADD-ON Fi nal Result [facility] [address] [place] [address], [place] D[place] [facility] [address] [place] [address] [facility] [address] [place] [address] * Immunoglobulin D (IgD) (08/16/2024 10:12 AM CDT) Immunoglobulin D (IgD), S <2 <=10 mg/dL 08/17/2024 9:30 AM CDT [facility] Blood (Blood, Venous) 08/16/2024 10:12 AM CDT 08/17/2024 6:17 AM CDT us Getachew Ruby M.D., Ph.D. LAB BLOOD ADD-ON Final Result [facility] [address] [address] [facility] [address] [place] [address] * Immunoglobulin Free Light Chains (08/16/2024 10:12 AM CDT) Calhoun Free Light Chain, S 1.26 0.3300 - 1.94 mg/dL 08/16/2024 3:36 PM CDT SDSC Lambda Free Light Chain, S 1.28 0.5700 - 2.63 mg/dL 08/16/2024 3:37 PM CDT [facility] Calhoun/Lambda FLC Ratio 0.9844 0.2600 - 1.65 08/16/2024 3:37 PM CDT [facility] Blood (Blood, Venous) 08/16/2024 10:12 AM CDT 08/16/2024 1:59 PM CDT Getachew Ruby M.D., Ph.D. LAB BLOOD ADD-ON Final Result [facility] [address] [place] [address] [facility] [address] [place] [address] * Uric Acid (08/16/2024 10:12 AM CDT) Uric Acid, S 6.4 3.7 - 8.0 mg/dL 08/16/2024 11:13 AM CDT DTL Blood (Blood, Venous) 08/16/2024 10:12 AM CDT 08/16/2024 10:51 AM CDT us Getachew Ruby M.D., Ph.D. LAB BLOOD ADD-ON Final Result [facility] [address] [place] [address], [facility] [address] [place] [address] * BUN (Blood Urea Nitrogen) (08/16/2024 10:12 AM CDT) BUN (Blood Urea Nitrogen), S 17 8 - 24 mg/dL 08/16/2024 11:13 AM CDT DTL Blood (Blood, Venous) 08/16/2024 10:12 AM CDT 08/16/2024 10:51 AM CDT Getachew uRby M.D., Ph.D. LAB BLOOD ADD-ON Final Result [facility] [address] [place] [address], [facility] [address] [place] [address] * ALT (Alanine Aminotransferase) (08/16/2024 10:12 AM CDT) Alanine Aminotransferase (ALT), S 20 7 - 55 U/L 08/16/2024 11:13 AM CDT DTL Blood (Blood, Venous) 08/16/2024 10:12 AM CDT 08/16/2024 10:51 AM CDT Getachew Ruby M.D., Ph.D. LAB BLOOD ADD-ON Final Result [facility] [address] [place] [address] * AST (Aspartate Aminotransferase) (08/16/2024 10:12 AM CDT) Aspartate Aminotransferase (AST), S 25 8 - 48 U/L 08/16/2024 11:13 AM CDT DT Blood (Blood, Venous) 08/16/2024 10:12 AM CDT 08/16/2024 10:51 AM CDT Getachew Ruby M.D., Ph.D. LAB BLOOD ADD-ON Final Result Performing Organization Address City/[facility]/ZIP Co de Phone Number [facility] [address] [place], [place] [id number] [place] [address] [address] [place] [address] * Sodium (08/16/2024 10:12 AM CDT) Sodium, S 141 135 - 145 mmol/L 08/16/2024 11:13 AM CDT DT Blood (Blood, Venous) 08/16/2024 10:12 AM CDT 08/16/2024 10:51 AM CDT Getachew Ruby M.D., Ph.D. LAB BLOOD ADD-ON Final Result [facility] [address] [place] [address] [place] [address] * Protein, Total (08/16/2024 10:12 AM CDT) Protein, Total, S 6.7 6.3 - 7.9 g/dL 08/16/2024 11:13 AM CDT DTL Blood (Blood, Venous) 08/16/2024 10:12 AM CDT 08/16/2024 10:51 AM CDT Getachew Ruby M.D., Ph.D. LAB BLOOD ADD-ON Final Result [facility] [address] [place] [address], [facility] [address] [place] [address] * Potassium (08/16/2024 10:12 AM CDT) Pathologist [facility] Potassium, S 4.9 3.6 - 5.2 mmol/L 08/16/2024 11:13 AM CDT DT Blood (Blood, Venous) 08/16/2024 10:12 AM CDT 08/16/2024 10:51 AM CDT Getachew Ruby M.D., Ph.D. LAB BLOOD ADD-ON Final Result [facility] [address] [place] [address], [facility] [address] [place] [address] * Phosphorus Inorganic (08/16/2024 10:12 AM CDT) Phosphorus (Inorganic), S 3.5 2.5 - 4.5 mg/dL 08/16/2024 11:13 AM CDT DTL Blood (Blood, Venous) 08/16/2024 10:12 AM CDT 08/16/2024 10:51 AM CDT Getachew Ruby M.D., Ph.D. LAB BLOOD ADD-ON Final Result [facility] [address] [place] [address], [facility] [address] [place] [address] * Alkaline Phosphatase (08/16/2024 10:12 AM CDT) Alkaline Phosphatase, S 55 40 - 129 U/L 08/16/2024 11:13 AM CDT DTL Blood (Blood, Venous) 08/16/2024 10:12 AM CDT 08/16/2024 10:51 AM CDT Getachew Ruby M.D., Ph.D. LAB BLOOD ADD-ON Final Result Performing Organization Address City/[facility] Co de Phone Number [facility] [address] [place] [address], [facility] [address] [place] [address] * (ABNORMAL) LD (Lactate Dehydrogenase) (08/16/2024 10:12 AM CDT) Lactate Dehydrogenase (LD), S 237(H) 122 - 222 U/L 08/16/2024 11:13 AM CDT DTL Blood (Blood, Venous) 08/16/2024 10:12 AM CDT 08/16/2024 10:51 AM CDT Getachew Ruby M.D., Ph.D. LAB BLOOD NON ADD-ON Fi nal Result Performing Organization Address City/[facility]/ZIP Co de Phone Number [facility] [address] [place] [address], [facility] [address] [place] [address] * Glucose, Random (08/16/2024 10:12 AM CDT) Glucose, S 97 70 - 140 mg/dL 08/16/2024 11:13 AM CDT DT Blood (Blood, Venous) 08/16/2024 10:12 AM CDT 08/16/2024 10:51 AM CDT Getachew Ruby M.D., Ph.D. LAB BLOOD TROPONIN Demetrice l Result Performing Organization Address [facility] Co de Phone Number [facility] [address] [place] [address], [facility] [address] [place] [address] * Immunoglobulin E (IgE) (08/16/2024 10:12 AM CDT) Immunoglobulin E (IgE), S 10.5 <=214 kU/L 08/16/2024 5:54 PM CDT [facility] Blood (Blood, Venous) 08/16/2024 10:12 AM CDT 08/16/2024 3:55 PM CDT Getachew Ruby M.D., Ph.D. LAB BLOOD ADD-ON Final Result Performing Organization Address [facility] Co de Phone Number [facility] [address] [place] [address] [facility] [address] [place] [address] * Creatinine with Estimated GFR (08/16/2024 10:12 AM CDT) Creatinine 1.20 0.74 - 1.35 mg/dL 08/16/2024 11:13 AM CDT DTL Estimated GFR (eGFR) 61 >=60 mL/min/BSA 08/16/2024 11:13 AM CDT DT Comment: Estimated GFR calculated using the 2020 CKD_EPI creatinine equation. Blood (Blood, Venous) 08/16/2024 10:12 AM CDT 08/16/2024 10:51 AM CDT Getachew Ruby M.D., Ph.D. LAB BLOOD ADD-ON Final Result [facility] [address] [place] [address], [facility] [address] [place] [address] * Calcium, Total (08/16/2024 10:12 AM CDT) Calcium, Total, S 9.5 8.8 - 10.2 mg/dL 08/16/2024 11:13 AM CDT DTL Blood (Blood, Venous) 08/16/2024 10:12 AM CDT 08/16/2024 10:51 AM CDT Getachew Ruby M.D., Ph.D. LAB BLOOD ADD-ON Final Result Performing Organization Address City/[facility]/ZIP Co de Phone Number [facility] [address] [place], [place] [phone] [place] [address] [address] [place] [address] * (ABNORMAL) Bilirubin, Total (08/16/2024 10:12 AM CDT) Bilirubin, Total, S 1.4(H) 0.0 - 1.2 mg/dL 08/16/2024 11:13 AM CDT DTL Blood (Blood, Venous) 08/16/2024 10:12 AM CDT 08/16/2024 10:51 AM CDT Getachew Ruby M.D., Ph.D. LAB BLOOD ADD-ON Final Result [facility] [address] [place] [address], [facility] [address] [place] [address] * Albumin (08/16/2024 10:12 AM CDT) Albumin, S 4.6 3.5 - 5.0 g/dL 08/16/2024 11:13 AM CDT DTL Blood (Blood, Venous) 08/16/2024 10:12 AM CDT 08/16/2024 10:51 AM CDT Getachew Ruby M.D., Ph.D. LAB BLOOD ADD-ON Final Result Performing Organization Address City/[facility]/ZIP Co de Phone Number [facility] [address] [place] [address], [place] D[place] [facility] [address] [place] [address] * M-protein Isotype, Mass-Fix Matrix-Assisted Laser Desorption/Ionization Wryv-rp-Iavalu Mass Spectrometry, 24 hour, Urine (08/03/2024 6:30 AM CDT) Flag M-protein Isotype MS, 24 HR, U Negative Negative 08/11/2024 3:52 PM CDT [facility] M-protein Isotype MS, 24 HR, U No monoclonal protein detected. 08/11/2024 3:52 PM CDT [facility] Comment: ----ADDITIONAL INFORMATION---- The submitted sample was assayed by five separate immunopurifications for IgG, IgA, IgM, kappa and lambda. ??The result reflects the findings of either no monoclonal protein detected or those monoclonal immunoglobulins that were detected. This test was developed and its performance characteristics determined by [facility] in a manner consistent with CLIA requirements. This test has not been cleared or approved by the U.S. Food and Drug Administration. Urine 08/03/2024 6:30 AM CDT 08/05/2024 2:51 PM CDT Narrative Resulting Agency Comment Mailed In Specimen Getachew Ruby M.D., Ph.D. LAB URINE ORDERABLES Fi nal Result Performing Organization Address [facility]/ZIP Co de Phone Number [facility] [address] [place] [address] [facility] [address] [place] [address] [place] [address] * Electrophoresis, Protein, 24 hour, Urine (08/03/2024 [...] Ph.D. LAB URINE ORDERABLES Fi nal Result [facility] [address] [place] [address] [facility] [place] [address] [place] [address] [facility] [address] [place] [address] [place] [address] * (ABNORMAL) Lipid Panel (12/31/2020 10:05 AM RUBBER TESTER) [facility] Cholesterol, Total 179 mg/dL 2020 1:05 PM RUBBER TESTER DTL Comment: ----REFERENCE VALUE---- Desirable: < 200 Borderline high: 200 - 239 High: > or = 240 Triglycerides 209(H) mg/dL 12/31/2020 1:05 PM RUBBER TESTER DTL Comment: ----REFERENCE VALUE---- Normal: <150 Borderline high: 150-199 High: 200-499 Very high: > or =500 Cholesterol, HDL, S 59 >=40 mg/dL 12/31/2020 1:05 PM RUBBER TESTER DTL Calculated LDL 78 mg/dL 12/31/2020 1:05 PM RUBBER TESTER DTL Comment: ----REFERENCE VALUE---- Desirable: <100 Above Desirable: 100-129 Borderline high: 130-159 High: 160-189 Very high: > or =190 Cholesterol, Non-HDL, Calculated 120 mg/dL 12/31/2020 1:05 PM RUBBER TESTER DTL Comment: ----REFERENCE VALUE---- Desirable: <130 Above Desirable: 130-159 Borderline high: 160-189 High: 190-219 Very high: > or =220 Blood (Blood, Venous) 12/31/2020 10:05 AM RUBBER TESTER 12/31/2020 12:38 PM RUBBER TESTER Luz Freed P.A.-C., M.S. LAB BLOOD ADD[place] [address], [place] [address] * (ABNORMAL) Urinalysis with Microscopic: Urine, Midstream (12/26/2019 10:12 PM RUBBER TESTER) Source Midstream 12/26/2019 10:37 PM RUBBER TESTER TIGRE Appearance Normal Normal 12/27/2019 1:58 AM RUBBER TESTER TIGRE Osmolality, U 397 150 - 1150 mOsm/kg 12/27/2019 12:33 AM RUBBER TESTER TIGRE pH, U 5.9 4.5 - 8.0 12/27/2019 12:33 AM RUBBER TESTER TIGRE Comment: ----ADDITIONAL INFORMATION---- This test was developed and its performance characteristics determined by [facility] in a manner consistent with CLIA requirements. This test has not been cleared or approved by the U.S. Food and Drug Administration. Glucose 3 0 - 15 mg/dL 12/27/2019 1:58 AM RUBBER TESTER TIGRE Protein, U 21 <26 mg/dL 12/27/2019 1:58 AM RUBBER TESTER TIGRE Comment: ----ADDITIONAL INFORMATION---- On 05/12/2017 the total protein assay method changed resulting in approximately a 15% increase in protein values. Protein/Osmolality 0.53(H) <0.42 Ratio 12/27 1:58 AM RUBBER TESTER TIGRE Comment: ----ADDITIONAL INFORMATION---- On 05/12/2017 the total protein assay method changed resulting in approximately a 15% increase in protein values. Predicted 24 Hr Protein 513 mg/24 h 12/27/2019 1:58 AM RUBBER TESTER TIGRE Predicted Range 163-1617 mg/24 h 0 1:58 AM RUBBER TESTER TIGRE Hemoglobin, QL Negative Negative 12/26/2019 11:18 PM RUBBER TESTER TIGRE Urine (Urine, Midstream) 12/26/2019 10:12 PM RUBBER TESTER 12/26/2019 10:37 PM RUBBER TESTER aRf Oshea M.D. LAB URINE ORDERABLES Final Result Performing Organization Address City/State/[facility] Co de Phone Number [facility] [address] [place] [address], [facility] TIGRE [facility] [address] [place] [address] * 25-Hydroxyvitamin D2 and D3 (06/10/2016 7:28 AM CDT) 25-Hydroxy D Total 47 SeeComment NG/ML [facility] Comment: ? REFERENCE VALUE ? 25-HYDROXY D TOTAL (D2+D3) Optimum levels in the healthy ? population are 20-50, patients with bone disease may ? benefit from higher levels within this range. ? 25-Hydroxy D2 <4.0 NG/ML [facility] 25-Hydroxy D3 47 NG/ML [facility] 06/10/2016 7:28 AM CDT 06/10/2016 7:28 AM CDT us Getachew Ruby M.D., Ph.D. LAB BLOOD ADD-ON Final Result [facility] [address] [place] [address], [facility] * Thyroid Function [place] (09/21/2015 10:54 AM RUBBER TESTER) TSH, Sensitive 3.9 0.3 - 4.2 MIU/L [facility] 09/21/2015 10:5 4 AM RUBBER TESTER 09/21/2015 10:54 AM RUBBER TESTER Getachew Ruby M.D., Ph.D. LAB BLOOD ADD-ON Final Result Performing Organization Address City/[facility]/ZIP Co de Phone Number [facility] [address] * Pulmonary Function Tests (03/31/2014 8:10 AM CDT) 03/31/2014 8:10 AM CDT us Historical Provider PFT ORDERABLES Final Result Performing Organization Address [facility] Co de Phone Number [facility] [address] from Last 3 Months or Most Recently Relevant to Health Maintenance Insurance [facility] Advance Directives For more information, please contact: [phone] * Full Code (Latest Code Status on [...] Answer Comments Full Code: Discussed Care Teams Repair Supervisor Relationship Specialty Start Date End Date Elsewhere, Pcp PCP - General Family Medicine 06/30/23
--- OUTSIDE RECORDS SUMMARY | 2024-08-30 11:36 | XMS_ITS | Encounter Summary ---
Author Organization [facility] Address [address] [place] [address] Care Team Providers Care Health Aide Name Role Phone Elsewhere, Pcp Primary Care Provider Unavailabl e Encounter Details Date Type Department Care Team (Late st Contact Info) Description 07/07/2024 Orders Only Division of Hematology in [place], [place] [address] [place] [phone] Do Olmos [address] [place] [phone] Multiple Myeloma In Remission (HCC) (Primary Dx) Social History Tobacco Use Types Packs/Day Years Used Date Smoking Tobacco: Never Passive Smoke Exposure: Past Smokeless Tobacco: Never Passive Exposure Comments:My Dad Smoked Alcohol Use [...] file 09/30/2020 How often do you attend jewish or jain serv ices? Patient declined 09/30/2020 Active Member [...] Living Expenses Not hard at all 09/07/2019 [facility] of Occupat ional Health - Occupational [...] your living situation today? I have a [facility] place to live 09/24/2023 Education Answer Date Recorded What is the highest level of school you have completed or the highest degree you have received? 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 LAB BLOOD ADD-ON Final Result Performing Organization Address City/[facility]/ZIP Co de Phone Number [facility] [address] 200 [place] [address] * Uric Acid (08/16/2024 10:12 AM CDT) Pathologist [facility] Uric Acid, S 6.4 3.7 - 8.0 mg/dL 08/16/2024 11:13 AM CDT DTL Blood (Blood, Venous) 08/16/2024 10:12 AM CDT 08/16/2024 10:51 AM CDT us Getachew Ruby M.D., Ph.D. LAB BLOOD ADD-ON Final Result Performing Organization Address City/[facility]/ZIP Co de Phone Number [facility] [address] [place] [address], [facility] 200 [place] [address] * Protein, Total (08/16/2024 10:12 AM CDT) Protein, Total, S 6.7 6.3 - 7.9 g/dL 08/16/2024 11:13 AM CDT DTL Blood (Blood, Venous) 08/16/2024 10:12 AM CDT 08/16/2024 10:51 AM CDT Getachew Ruby M.D., Ph.D. LAB BLOOD ADD-ON Final Result Performing Organization Address City/[facility]/ZIP Co de Phone Number [facility] [address] 200 [place] [address] * Glucose, Random (08/16/2024 10:12 AM CDT) Glucose, S 97 70 - 140 mg/dL 08/16/2024 11:13 AM CDT DT Blood (Blood, Venous) 08/16/2024 10:12 AM CDT 08/16/2024 10:51 AM CDT Getachew Ruby M.D., Ph.D. LAB BLOOD TROPONIN Demetrice l Result Performing Organization Address [facility] Co de Phone Number [facility] [address] [place] [address] * (ABNORMAL) LD (Lactate Dehydrogenase) (08/16/2024 10:12 AM CDT) Lactate Dehydrogenase (LD), S 237(H) 122 - 222 U/L 08/16/2024 11:13 AM CDT DT Blood (Blood, Venous) 08/16/2024 10:12 AM CDT 08/16/2024 10:51 AM CDT Getachew Ruby M.D., Ph.D. LAB BLOOD NON ADD-ON Fi nal Result Performing Organization Address City/[facility]/ZIP Co de Phone Number [facility] [address] [place] 200 [place] [address] * BUN (Blood Urea Nitrogen) (08/16/2024 10:12 AM CDT) BUN (Blood Urea Nitrogen), S 17 8 - 24 mg/dL 08/16/2024 11:13 AM CDT DTL Blood (Blood, Venous) 08/16/2024 10:12 AM CDT 08/16/2024 10:51 AM CDT Getachew Ruby M.D., Ph.D. LAB BLOOD ADD-ON Final Result [facility] 200 [place], [place] [address] [place] [address] 200 [place] [address] * (ABNORMAL) Bilirubin, Total (08/16/2024 10:12 AM CDT) Bilirubin, Total, S 1.4(H) 0.0 - 1.2 mg/dL 08/16/2024 11:13 AM CDT DT Blood (Blood, Venous) 08/16/2024 10:12 AM CDT 08/16/2024 10:51 AM CDT Getachew Ruby M.D., Ph.D. LAB BLOOD ADD-ON Final Result [facility] 200 [place] [address] [place] [address] 200 [place] [address] * ALT (Alanine Aminotransferase) (08/16/2024 10:12 AM CDT) Alanine Aminotransferase (ALT), S 20 7 - 55 U/L 08/16/2024 11:13 AM CDT DTL Blood (Blood, Venous) 08/16/2024 10:12 AM CDT 08/16/2024 10:51 AM CDT Getachew Ruby M.D., Ph.D. LAB BLOOD ADD-ON Final Result [facility] [address] [place] [address], [facility][note 3] [address] [place] [address] documented in this encounter Visit Diagnoses Diagnosis Multiple Myeloma In Remission (HCC)- Primary documented in this encounter Additional Health Concerns Assessment Noted Time PHQ-9 Depression Total Score: 2 03/17/20 14 12:33 PM CDT documented as of this encounter Care Teams Health Aide Relationship Specialty Start Date End Date Elsewhere, Pcp PCP - General Family Medicine 06/30/23 documented as of this encounter
--- OUTSIDE RECORDS SUMMARY | 2024-08-30 11:36 | XMS_ITS | Encounter Summary ---
Author Organization [facility] Address [address] [place] [address] Care Team Providers Care Office Spec Name Role Phone Elsewhere, Pcp Primary Care Provider Unavailabl e Encounter Details Date Type Department Care Team (Latest Contact Info) Description 06/27/2024 10:10 AM CDT - 06/27/2024 11:59 PM CDT Hospital Encounter Department of Laboratory Medicine and Pathology, [facility], in [place], [place] [address] [place] [phone] Getachew Ruby M.D., Ph.D. [address] [place] [phone] Multiple Myeloma In Remission (HCC) Discharge Disposition: Home or Self Care Social History Tobacco Use Types Packs/Day Years [...] file 09/30/2020 How often do you attend baptism or episcopalian serv ices? Patient declined 09/30/2020 Active Member [...] Living Expenses Not hard at all 09/07/2019 [facility] [place] [facility] Occupat ional Health - Occupational Stress [...] your living situation today? I have a [facility] place to live 09/24/2023 Education Answer Date Recorded What is the highest level of school you have completed or the highest degree you have received? 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 acyclovir (ZOVIRAX) 400 mg tablet take one tablet by mouth twice a day 180 tablet 3 04/13/2024 calcium carbonate-vitami n D3 (Calcium 600 with Vitamin D3) 600 mg(1,500mg) -400 unit tablet,chewable Chew 2 tablets daily. hydrocortisone (ANUSOL-HC) 2.5 % rectal cream Apply 1 application topically 2 (two) times a day as needed for hemorrhoids. 06/10/2016 melatonin 1 mg tablet Take 10 mg by mouth at bedtime as needed. multivitamin tablet Take 1 tablet by mouth daily. 09/21/2015 documented as of this encounter Plan of Treatment Not on file documented as of this encounter Procedures Procedure Name Priority Date/Time Associated Diagnosis Comments M-PROTEIN MASS-FIX, 24 HR, U Routine 08/03/2024 6:30 AM CDT ELECTROPHORESIS, PROTEIN, 24 HR, U Routine 08/03/2024 6:30 AM CDT Multiple Myeloma In Remission (HCC) documented in this encounter Results * M-protein Isotype, Mass-Fix Matrix-Assisted Laser Desorption/Ionization [id number] Mass Spectrometry, 24 hour, Urine (08/03/2024 6:30 AM CDT) Flag M-protein Isotype MS, 24 HR, U Negative Negative 08/11/2024 3:52 PM CDT [facility] M-protein Isotype MS, 24 HR, U No monoclonal protein detected. 08/11/2024 3:52 PM CDT [facility] Comment: ----ADDITIONAL INFORMATION---- The submitted sample was assayed by five separate immunopurifications for IgG, IgA, IgM, kappa and lambda. ??The result reflects the findings of either no monoclonal protein detected or those monoclonal immunoglobulins that were detected. This test was developed and its performance characteristics determined by [facility] in a manner consistent with CLIA requirements. This test has not been cleared or approved by the U.S. Food and Drug Administration. Urine 08/03/2024 6:30 AM CDT 08/05/2024 2:51 PM CDT Narrative Resulting Agency Comment Mailed In Specimen us Getachew Ruby M.D., Ph.D. LAB URINE ORDERABLES [facility] Result [facility] [address] [place] [address] [facility] [address] [place] [address] [place] [place] [address] * Electrophoresis, Protein, 24 hour, Urine (08/03/2024 [...] Narrative Resulting Agency Comment Mailed In Specimen us Getachew Ruby M.D., Ph.D. LAB URINE ORDERABLES Fi nal Result [facility] [address] [facility] [address] [place] [address] [facility] [address] [place] [address] [facility] [address] [place] [address] [place] [address] documented in this encounter Visit Diagnoses Diagnosis Multiple Myeloma In Remission (HCC) documented in this encounter Additional Health Concerns Assessment Noted Time PHQ-9 Depression Total Score: 2 03/17/20 14 12:33 PM CDT documented as of this encounter Care Teams Office Spec Relationship Specialty Start Date End Date Elsewhere, Pcp PCP - General Family Medicine 06/30/23 documented as of this encounter
--- OUTSIDE RECORDS SUMMARY | 2024-08-30 11:36 | XMS_ITS | Encounter Summary ---
Author Organization [facility] Address [address] [place] [address] Care Team Providers Care Numerologist Name Role Phone Elsewhere, Pcp Primary Care Provider Unavailabl e Encounter Details Date Type Department Care Team (Latest Contact Info) Description 08/16/2024 9:39 AM CDT - 08/16/2024 11:59 PM CDT Hospital Encounter Department of Laboratory Medicine and Pathology, [facility], in [place], [place] [address] [place] [phone] Getachew Ruby M.D., Ph.D. [address] [place] [phone] Multiple Myeloma In Remission (HCC) Discharge Disposition: [...] file 09/30/2020 How often do you attend synagogue or zoroastrian serv ices? Patient declined 09/30/2020 Active Member [...] Living Expenses Not hard at all 09/07/2019 [facility] [place] of Occupat ional Health - Occupational Stress [...] your living situation today? I have a [facility] place to live 09/24/2023 Education Answer Date Recorded What is the highest level of school you have completed or the highest degree you have received? 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 LAB BLOOD ADD-ON Final Result Performing Organization Address City/[facility]/ZIP Co de Phone Number [facility] [address] [place] [address], [facility] 200 [place] [address] * Uric Acid (08/16/2024 10:12 AM CDT) Uric Acid, S 6.4 3.7 - 8.0 mg/dL 08/16/2024 11:13 AM CDT DTL Blood (Blood, Venous) 08/16/2024 10:12 AM CDT 08/16/2024 10:51 AM CDT Getachew Ruby M.D., Ph.D. LAB BLOOD ADD-ON Final Result Performing Organization Address City/[facility]/ZIP Co de Phone Number [facility] 200 [place] [address], [facility] 200 [place] [address] * Protein, Total (08/16/2024 10:12 AM CDT) Protein, Total, S 6.7 6.3 - 7.9 g/dL 08/16/2024 11:13 AM CDT DT Blood (Blood, Venous) 08/16/2024 10:12 AM CDT 08/16/2024 10:51 AM CDT Getachew Ruby M.D., Ph.D. LAB BLOOD ADD-ON Final Result Performing Organization Address [facility] Co de Phone Number [facility] [address] 200 [place] [address] * Glucose, Random (08/16/2024 10:12 AM CDT) Pathologist [facility] Glucose, S 97 70 - 140 mg/dL 08/16/2024 11:13 AM CDT DT Blood (Blood, Venous) 08/16/2024 10:12 AM CDT 08/16/2024 10:51 AM CDT Getachew Ruby M.D., Ph.D. LAB BLOOD TROPONIN Demetrice l Result Performing Organization Address [facility] de Phone Number [facility] [address] 200 [place] [address] * (ABNORMAL) LD (Lactate Dehydrogenase) (08/16/2024 10:12 AM CDT) Pathologist [facility] Lactate Dehydrogenase (LD), S 237(H) 122 - 222 U/L 08/16/2024 11:13 AM CDT DT Blood (Blood, Venous) 08/16/2024 10:12 AM CDT 08/16/2024 10:51 AM CDT Getachew Ruby M.D., Ph.D. LAB BLOOD NON ADD-ON Fi nal Result Performing Organization Address City/[facility]/ZIP Co de Phone Number [facility] 200 [place] [address], [facility] 200 [place] [address] * BUN (Blood Urea Nitrogen) (08/16/2024 10:12 AM CDT) BUN (Blood Urea Nitrogen), S 17 8 - 24 mg/dL 08/16/2024 11:13 AM CDT DT Blood (Blood, Venous) 08/16/2024 10:12 AM CDT 08/16/2024 10:51 AM CDT Getachew Ruby M.D., Ph.D. LAB BLOOD ADD-ON Final Result [facility] 200 [place] [address], [facility] 200 [place] [address] * (ABNORMAL) Bilirubin, Total (08/16/2024 10:12 AM CDT) Bilirubin, Total, S 1.4(H) 0.0 - 1.2 mg/dL 08/16/2024 11:13 AM CDT DT Blood (Blood, Venous) 08/16/2024 10:12 AM CDT 08/16/2024 10:51 AM CDT Getachew Ruby M.D., Ph.D. LAB BLOOD ADD-ON Final Result [facility] 200 [place] [address], [facility] 200 [place] [address] * ALT (Alanine Aminotransferase) (08/16/2024 10:12 AM CDT) Alanine Aminotransferase (ALT), S 20 7 - 55 U/L 08/16/2024 11:13 AM CDT DTL Blood (Blood, Venous) 08/16/2024 10:12 AM CDT 08/16/2024 10:51 AM CDT Getachew Ruby M.D., Ph.D. LAB BLOOD ADD-ON Final Result [facility] [address] [place] [address], [place] [facility] [address] [place] [address] * Immunoglobulin E (IgE) (08/16/2024 10:12 AM CDT) Immunoglobulin E (IgE), S 10.5 <=214 kU/L 08/16/2024 5:54 PM CDT [facility] Blood (Blood, Venous) 08/16/2024 10:12 AM CDT 08/16/2024 3:55 PM CDT Getachew Ruby M.D., Ph.D. LAB BLOOD ADD-ON Final Result Performing Organization Address City/[facility]/ZIP Co de Phone Number [facility] [address] [place] [address] [facility] [address] [place] [address] * Immunoglobulin D (IgD) (08/16/2024 10:12 AM CDT) Pathologist [facility] Immunoglobulin D (IgD), S <2 <=10 mg/dL 08/17/2024 9:30 AM CDT [facility] Blood (Blood, Venous) 08/16/2024 10:12 AM CDT 08/17/2024 6:17 AM CDT Getachew Ruby M.D., Ph.D. LAB BLOOD ADD-ON Final Result [facility] [address] [place] [address] [facility] [address] [place] [address] * (ABNORMAL) Quantitative M-protein Study (08/16/2024 10:12 [...] developed and its performance characteristics determined by [facility] in a manner consistent with CLIA requirements. This test has not been cleared or approved by the U.S. Food and Drug Administration. Blood (Blood, Venous) 08/16/2024 10:12 AM CDT 08/16/2024 3:17 PM CDT Narrative [facility] - 08/17/2024 2:54 PM CDT Specimen Information: Specimen ID: [id number] Specimen Type: Blood Specimen Collection Start Date: 08/16/2024 10:12 AM Specimen Received Date: 08/16/2024 ??3:17 PM Specimen ID: [id number] Specimen Type: Blood Specimen Collection Start Date: 08/16/2024 10:12 AM Specimen Received Date: 08/16/2024 ??1:55 PM Getachew Ruby M.D., Ph.D. LAB BLOOD ADD-ON Final Result [facility] [address] [place] [address] [facility] [address] [place] [address] [facility] [address] [place] [address] [place] [address] * Sodium (08/16/2024 10:12 AM CDT) Sodium, S 141 135 - 145 mmol/L 08/16/2024 11:13 AM CDT DTL Blood (Blood, Venous) 08/16/2024 10:12 AM CDT 08/16/2024 10:51 AM CDT Getachew Ruby M.D., Ph.D. LAB BLOOD ADD-ON Final Result [facility] [address] [place] [address] * Potassium (08/16/2024 10:12 AM CDT) [facility] Potassium, S 4.9 3.6 - 5.2 mmol/L 08/16/2024 11:13 AM CDT DTL Blood (Blood, Venous) 08/16/2024 10:12 AM CDT 08/16/2024 10:51 AM CDT Getachew Ruby M.D., Ph.D. LAB BLOOD ADD-ON Final Result [facility] [address] [place] [address] * Immunoglobulin Free Light Chains (08/16/2024 10:12 AM CDT) [place] Free Light Chain, S 1.26 0.3300 - 1.94 mg/dL 08/16/2024 3:36 PM CDT [facility] Lambda Free Light Chain, S 1.28 0.5700 - 2.63 mg/dL 08/16/2024 3:37 PM CDT [facility] [place]/Lambda FLC Ratio 0.9844 0.2600 - 1.65 08/16/2024 3:37 PM CDT [facility] Blood (Blood, Venous) 08/16/2024 10:12 AM CDT 08/16/2024 1:59 PM CDT Getachew Ruby M.D., Ph.D. LAB BLOOD ADD-ON Final Result Performing Organization Address City/[facility] Co de Phone Number [facility] [address] [place] [address] [facility] [address] [place] [address] * Creatinine with Estimated GFR (08/16/2024 10:12 [...] BLOOD ADD-ON Final Result Performing Organization Address [facility] Co de Phone Number [facility] [address] DTL [facility] [address] [place] [address] * (ABNORMAL) CBC no call back, reflex [...] LAB BLOOD NON ADD-ON Fi nal Result [facility] [address] [place] [address], [facility] DTL [facility] [address] [place] [address] DHPM [facility] [address] [place] [address] * Calcium, Total (08/16/2024 10:12 AM CDT) [facility] Calcium, Total, S 9.5 8.8 - 10.2 mg/dL 08/16/2024 11:13 AM CDT DTL Blood (Blood, Venous) 08/16/2024 10:12 AM CDT 08/16/2024 10:51 AM CDT Getachew Ruby M.D., Ph.D. LAB BLOOD ADD-ON Final Result Performing Organization Address City/[facility]/ZIP Co de Phone Number [facility] [address] [place] [address], [facility] [address] [place] [address] * AST (Aspartate Aminotransferase) (08/16/2024 10:12 AM CDT) Aspartate Aminotransferase (AST), S 25 8 - 48 U/L 08/16/2024 11:13 AM CDT DTL Blood (Blood, Venous) 08/16/2024 10:12 AM CDT 08/16/2024 10:51 AM CDT Getachew Ruby M.D., Ph.D. LAB BLOOD ADD-ON Final Result Performing Organization Address [facility]/ZIP Co de Phone Number [facility] [address] [place] [address], [facility] [address] [place] [address] * Alkaline Phosphatase (08/16/2024 10:12 AM CDT) Alkaline Phosphatase, S 55 40 - 129 U/L 08/16/2024 11:13 AM CDT DTL Blood (Blood, Venous) 08/16/2024 10:12 AM CDT 08/16/2024 10:51 AM CDT Getachew Ruby M.D., Ph.D. LAB BLOOD ADD-ON Final Result Performing Organization Address City/[facility]/ZIP Co de Phone Number [facility] [address] [place] [address], [facility] [address] [place] [address] * Albumin (08/16/2024 10:12 AM CDT) Albumin, S 4.6 3.5 - 5.0 g/dL 08/16/2024 11:13 AM CDT DTL Blood (Blood, Venous) 08/16/2024 10:12 AM CDT 08/16/2024 10:51 AM CDT Getachew Ruby M.D., Ph.D. LAB BLOOD ADD-ON Final Result [facility] [address] [place] [address], [facility] [address] [place] [address] documented in this encounter Visit Diagnoses Diagnosis Multiple Myeloma In Remission (HCC) documented in this encounter Additional Health Concerns Assessment Noted Time PHQ-9 Depression Total Score: 2 03/17/20 14 12:33 PM CDT documented as of this encounter Care Teams Numerologist Relationship Specialty Start Date End Date Elsewhere, Pcp PCP - General Family Medicine 06/30/23 documented as of this encounter
--- OUTSIDE RECORDS SUMMARY | 2024-08-30 11:36 | XMS_ITS | Encounter Summary ---
Author Organization [facility] Address [address] [place] [address] Care Team Providers Care Marine Electronics Technician Name Role Phone Elsewhere, Pcp Primary Care Provider Unavailabl e Encounter Details Date Type Department Care Team (Latest Contact Info) Description 08/12/2024 9:30 AM CDT Clinical Communication Virtual Review in [place], [place] [address] [place] [phone] Social History Tobacco Use Types Packs/Day Years [...] file 09/30/2020 How often do you attend protestant or jainism serv ices? Patient declined 09/30/2020 Active Member [...] Living Expenses Not hard at all 09/07/2019 [facility] of Occupat [facility] - Occupational Stress Questionnaire Answer Date Recorded [...] your living situation today? I have a [facility] place to live 09/24/2023 Education Answer Date Recorded What is the highest level of school you have completed or the highest degree you have received? 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
--- OUTSIDE RECORDS SUMMARY | 2024-08-30 11:36 | XMS_ITS | Clinical Summary ---
Author Organization [facility] Address [place], [place] [address] Care Team Providers Care Mold Mover Name Role Phone Votel, Charli Medel MD Primary Care Provider + Allergies No known active allergies Medications Medication Sig Dispensed Refills Start Date End Date Status acetaminophen (TYLENOL EXTRA STRGTH) 500 mg tablet Take 1 tablet by mouth every 6 hours if needed. Max acetaminophen dose: 4000mg in 24 hrs. 0 10/24/2013 Active medication order composerIndications :Multiple myeloma (HC) Citracal ( 400mg vit D and 500mg calcium) taking one daily. 0 05/22/2014 Active hydrocortisone (PROCTOZONE-HC) 2.5 % rectal cream Apply topically to affected area(s) 3 times daily. 1 Tube 3 12/22/2014 Active MULTIVITAMIN (MULTIPLE VITAMIN ESSENTIAL) tab Take 1 Tab by mouth once daily. 0 04/09/2016 Active melatonin 1 mg Take 1 mg by mouth. A ctive White Petrolatum-Mineral Oil 56.8-42.5 % ophthalmic ointment Place 0.25 Inches into the eye(s). 10/08/2019 Active acyclovir (ZOVIRAX) 400 mg tablet Take 1 Tablet by mouth 2 times daily. 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 03/12/2023 Disorder involving thrombocytopenia 09/10/2021 03/12/2023 History of DVT (deep vein thrombosis) 01/17/2019 09/10/2021 Deep vein thrombosis (DVT) o f right lower extremity 04/24/2016 09/10/2021 Anticoagulation monitoring, INR range 2-3 04/10/2016 09/10/2021 Rib pain on left side 09/28/20132022 Immunizations Name Administration Dates Next Due AMB INFLUENZA IIV3 (AGE 65+ YRS) PF (Flu Clinic Only) 08/11/2017 AMB Influenza, IIV3 (Age >=3 years)(Flu Clinic Only) 08/04/2012,08/26/2011 COVID-19 vaccine (Moderna 100mcg/0.5mL) PF, MDV 12/24/2021,02/01/2021,01/04/2021 Cholera (Injectable) 04/27/1973 HIB HbOC (HibTITER) 07/24/2015 HIB PRP-OMP (PedvaxHIB) 07/24/2015 HIB PRP-T (ActHIB,Hiberix) 06/10/2016,05/22/2015 Hepatitis A (Adult) 07/09/2018,09/06/2015 Hepatitis B (Adult) 06/10/2016,07/24/2015,2014 Hepatitis B (Peds) 05/22/2015 Hepatitis B, Unspecified 07/24/2015 Inactivated Polio Vaccine 06/10/2016,07/24/2015, 05/22/2015 Influenza A (H1N1), Inactivated 11/20/2009,11/20 Influenza A (H1N1), Inactiva josé miguel (Age >=3 Years) 11/20/2009 Influenza Virus, Unspecified 08/22/2015 Influenza, High-dose Inactivated 08/04/2016,05/2015,08/02/2014 Influenza, High-dose Quadriv alent Inactivated 08/26/2022 Influenza, IIV3 (Age 6-35 mos) 08/26/2011 Influenza, IIV3 (Age >=3 years) 10/26/20 13,08/04/2012,09/02/2010,2008 Influenza, IIV4 07/31/2020,11/20/2009,11/20/2008 Influenza, Inactivated AIIV4 (Age 65+ Years) Preserv Free 08/26/2022,09/10/2021 Influenza, Inactivated IIV3 (Age 65+ Years) Preserv Free 08/26/2019,08/18/2018,08/11/2017 Pneumococcal Poly,23-Valent (Pneumovax) 06/10/2016,07/25/2009 Pneumococcal conj 13-Valent (Prevnar 13) 07/24/2015,05/22/2015 TD, UNSPECIFIED 08/24/2000 Td (Age >=7 Years) 08/24/2000 Td, Preservative Free (age > = 7 Years) 06/10/2016,07/24/2015,07/25/2009 Tdap 05/22/2015,04/21/2012 Typhoid (injectable) 07/09/2018,09/06/2015,04/27 Yellow Fever 04/27/1973 Zoster (Shingrix-RZV, recombinant) 07/17/2018,,04/13/2018 Zoster (Zostavax-ZVL, live) 08/09/2009 Family History Medical History Relation Name Comments Stroke Father deseased Other Mother myeloproliferat armand disorder/ deseased Relation Name Status Comments Father Mother Social History Tobacco Use Types Packs/Day Years Used Date Smoking Tobacco: Never Smokeless Tobacco: Never Tobacco Cessation:Counseling Given: Yes Alcohol Use Standard Drinks/Week Comments Yes 3 (1 standard drink = 0.6 oz pur e alcohol) 7 drinks per week PHQ-2 Answer Date Recorded PHQ-2 TOTAL SCORE 0 03/12/2023 Social Connections Answer Date Recorded Frequency of Communication with Friends and Fami ly Not on file 11/07/2021 Financial Resource Strain Answer Date R ecorded Difficulty of Paying Living Expenses Not on file 11/07/2021 Difficulty of Paying Living Expenses Not on file 11/07/2021 Sex and Gender Information Value Date Recorded Sex Assigned at Not on file Gender Identity Not on file Sexual Orientation Not on file Obstetrics History Last Filed Vital Signs Vital Sign Reading Time Taken Comments Blood Pressure 158/90 03/12/2023 1:21 PM CDT Pulse 72 03/12/2023 1:21 PM CDT Temperature 36.7 ??C (98 ??F) 03/12/2023 1:21 PM CDT Respiratory Rate - - Oxygen Saturation 97% 03/12/2023 1:21 PM CDT Inhaled Oxygen Concentration - - Weight 80.1 kg (176 lb 9.6 oz) 03/12/2023 1:21 P M CDT Height 167.6 cm (5' 6) 03/12/2023 1:21 PM CDT Body Mass Index 28.5 03/12/2023 1:21 PM CDT Plan of Treatment Health Maintenance Due Date Last Done Comments RSV vaccine for adults or (1 - 1-dose 75+ series) 2019 BMI (ht and wt on same day) for age 18+ 03/12/2024 03/12/2023, 02/26/2023, 09/10/2021, Additional history exists Depression screening for age 12+ 03/12/2024 03/12/2023, 09/10/2021, 06/22/2019, Additional history exists Medicare Wellness for age 65+ 03/12/2024, 09/10/2021, 06/22/2019, Additional history exists COVID-19 vaccine series ( season) 2024 09/01/2022, 12/24/2021, 07/11/2021, Additional history exists Influenza for age 65+ 07/17/2024 08/26/2022 , 08/26/2022, 09/10/2021, Additional history exists Tetanus booster 06/10/2026 06/10/2016, 06/2015, 05/22/2015, Additional history exists Tdap Completed 05/22/2015, 04/21/2012 Pneumococcal series for age 65+ Completed 06/10/2016, 07/24/2015, 05/22/2015, Additional history exists Zoster (shingles) series for age 50+ Completed 07/17/2018, 06/16/2018, 04/13/2018, Additional history exists Care Teams Mold Mover Relationship Specialty Start Date End Date Votel, Charli Medel MD [address] [place] [address] PCP - General Family Practice 03/12/23
--- OUTSIDE RECORDS SUMMARY | 2024-08-30 11:36 | XMS_ITS | Encounter Summary ---
Author Organization [facility] Address [address] [place] [id number] Care Team Providers Care Rustic Terrazzo Setter Name Role Phone Elsewhere, Pcp Primary Care Provider Unavailabl e Reason for Referral * Outpatient (Routine) - Authorized Specialty Diagnoses / Procedures Referred By Contac t Referred To Contact Hematology Oncology Luz Freed P.A.-C., M.S. [address] [place] [phone] Phone: tel: fax: [facility] Referral ID Status Reason Start Date Expiration Date V isits Requested Visits Authorized [id number] Authorized 08/16/2024 02/15/2026 1 1 Reason for Visit * Outpatient (Routine) - Closed Specialty Diagnoses / Procedures Referred By Contac t Referred To Contact Hematology Oncology Getachew Ruby M.D., Ph.D. [address] [place] [phone] Phone: tel: fax: [facility] Referral ID Status Reason Start Date Expiration Date Visits Re quested Visits Authorized [id number] Closed 05/05/2024 11/04/2025 1 1 Encounter Details Date Type Department Care Team (Late st Contact Info) Description 08/16/2024 4:00 PM CDT Office Visit Division of Hematology in [place], [place] [address] [place] [address] Luz Freed P.A.-C., M.S. [address] [place] [address] Multiple Myeloma In Remission (HCC) (Primary Dx) [...] file 09/30/2020 How often do you attend sabianism or sabianist serv ices? Patient declined 09/30/2020 Active Member [...] Living Expenses Not hard at all 09/07/2019 [facility] of Occupat ional Health - Occupational Stress [...] your living situation today? I have a [facility] place to live 09/24/2023 Education Answer Date Recorded What is the highest level of school you have completed or the highest degree you have received? 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 - 08/16/2024 4:00 PM CDT SUBJECTIVE CHIEF COMPLAINT / REASON FOR VISIT Smauel Gleason is a 79 y.o. male who presents for evaluation of multiple myeloma. Primary staff livestock broker is Getachew Ruby MD, PhD [phone]). HISTORY OF PRESENT ILLNESS Mr. Gleason returns for re-evaluation of multiple myeloma with the following hematologic history: HEMATOLOGIC HISTORY Oncology History Multiple Myeloma Not Having Achieved Remission (HCC) 11/03/2013 Initial Diagnosis Multiple Myeloma In Remission (HCC) Date of diagnosis: November 03, 2013. Presenting symptoms: mid-thoracic back pain. Hemoglobin: 13.1. Calcium: 11.7. Creatinine: not available. LDH: not available. Beta 2 microglobulin: not available. C-reactive protein: not available. Albumin: 4.11. M-spike: 1.02 g/dL; Type: IgG kappa. IgG: not available; IgA: not available; IgM: not available. Free light chains: kappa: not available; lambda: not available; kappa:lambda ratio: not available. Urine 24 hour protein: 18.4 g of which 18 g were kappa free light chains; urine M-spike: N/A. Bone marrow plasma cells: 70% to 80% including atypical ones%; labeling index: not available. Cytogenetics: abnormal (see scanned in outside report or [facility] LastWord). Myeloma FISH: hyperdiploid clone with translocation involving chromosome 14 to an undisclosed partner. Bone survey: abnormal . Other imaging: CT and MRI of the spine showed a lytic lesion affecting T11 with some possible cord compression. Current symptoms: none. Karnofsky score: 90; ECOG performance score: 1. Mr. Gleason was diagnosed with multiple myeloma in October 2013 when he presented with chronic low back pain. Unfortunately, he was having the back pain when he was traveling to the [facility],and a few days after his trip back to the [facility], he developed a right lower extremity DVT, for which he has been anticoagulated. Ultimately, the diagnosis of myeloma was established. He had renal insufficiency as well as hypercalcemia. 11/07/2013 - 02/14/2014 Chemotherapy Cybor-D Initially he was treated with dexamethasone alone and subsequently started on CyBorD. The first cycle he received high-dose dex (days 1 - 4, 9 - 12 and 17 - 20), but additional cycles have been with weekly therapy. 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 Gleason was eligible to proceed with transplant, progenitor cells were collected, and he was infused with half of the cells on April 14, 2014, which was day 0. He remained an outpatient throughouthis transplant and was dismissed home day +21. At day 100 post-transplant, Mr. Gleason was essentially in CR. 06/16/2014 - 09/17/2015 Chemotherapy Velcade maintenance was recommended given the monosomy 13 by cytogenetics. 09/2015 Progression/Relapse May 2015, he was doing well with a slight increase in kappa. In September 2015 approximately 17 months after his transplant, he was having clear biochemical progression. 09/17/2015 - 09/2018 Chemotherapy Carfilzomib, Revlimid, dexamethasone. Carfilzomib reduced to days 1, 2, 15, and 16 in May 2016. Carfilzomib d/c'd Jun 201709/2018 Progression/Relapse Biochemical and radiographic evidence for progression. 09/2018 - 08/2019 Chemotherapy Daratumumab, pomalidomide, and dexamethasone 09/13/2019 - Research Study Participant Research Study: [facility];[id number];CARTITUDE-1;A Phase 1b-2, Open- Label Study of [id number], A Chimeric Antigen Receptor T-Cell (CAR-T) Therapy Directed Against BCMA in Subjects With Relapsed or R... Treatment Protocol: [facility] [id number] ( Cyclophosphamide / Fludarabine / JNJ- [id number] ) Samuel Gleason was enrolled in CARTITUDE trial in August 2019 and received his cells on September 13. He developed new neurologic symptoms including facial droop and difficulty swallowing. MRI showed unusual new bilateral cranial nerve VII and 2nd and 3rd division cranial nerve V enhancement . Neurology was consulted and felt that the facial and trigeminal nerve enhancement seen on MRI maybe related to CAR-T. He had CSF on 10/07/2019 and was negative for Lyme, VZV, HSV, CMV, with a negative bacterial culture. HHV-6 and EBV on the CSF are pending. He received IV Dexamethasone 8 mg q6h from 10/04 to 10/05, then IV Dex 4 mg q6h from 10/06 until discharge on 10/08. He was sent with a script for Prednisone 80 mg daily for 4 days upon dismissal. A steroid taper was recommended afterwards. The facial droop symptoms resolved over time. INTERVAL HISTORY He returns today 08/16/24 for ongoing evaluation. Overall he has had an uneventful three months. Hecontinues to struggle with left knee pain. He is working with his local care team for additional evaluation and management recommendations. He had a CT skeletal survey in April which did not show any new myelomatous lesions. The pain primarily occurs if he needs to bend his knee at a 90 degree anglesuch as with climbing stairs. The pain otherwise does not occur with ambulation. He has intermittent bleeding hemorrhoids without pain and stable neuropathy. No significant bowel concerns. ECOG performance status of 0. REVIEW OF SYSTEMS Patient denies fevers, infections, lightheadedness, dizziness, headaches, chest pain, dyspnea, nausea, vomiting, constipation. MEDICATIONS Current Outpatient Medications: acetaminophen (TYLENOL) 500 mg tablet, Take 1,000 mg by mouth every 6 (six) hours as needed for pain (as needed for back pain)., Disp: , Rfl: acyclovir (ZOVIRAX) 400 mg tablet, take one tablet by mouth twice a day, Disp: 180 tablet, Rfl: 3 calcium carbonate-vitamin D3 (Calcium 600 with Vitamin D3) 600 mg(1,500mg) -400 unit tablet,chewable, Chew 2 tablets daily., Disp: , Rfl: hydrocortisone (ANUSOL-HC) 2.5 % rectal cream, Apply 1 application topically 2 (two) times a day asneeded for hemorrhoids. , Disp: , Rfl: melatonin 1 mg tablet, Take 10 mg by mouth at bedtime as needed., Disp: , Rfl: multivitamin tablet, Take 1 tablet by mouth daily., Disp: , Rfl: PAST MEDICAL/SURGICAL/SOCIAL HISTORY Patient's past medical history, social history, and surgical history were reviewed. OBJECTIVE VITAL SIGNS BP (!) 167/69 (BP Location: Left arm, Patient Position: Sitting, Cuff Size: Regular) Pulse 61 Temp (!) 35.6 ??C (Tympanic) Resp 16 Ht 168.2 cm Wt 78.5 kg SpO2 96% BMI 27.77 kg/m?? PHYSICAL EXAM GENERAL: Patient is comfortably seated, in no acute distress. Alert and oriented to person, place, and time. SKIN: No rashes, lesions, or ecchymosis. LYMPH: No anterior or posterior cervical, submandibular, submental, or supraclavicular lymphadenopathy appreciated. EYES: Conjunctivae nonicteric. HEART: Heart is regular rate and rhythm. No rubs, gallops, murmurs or extra heart sounds. LUNGS: Lungs clear to auscultation bilaterally. No rales, wheezes or rhonchi. ABDOMINAL: Bowel sounds present. EXTREMITIES: 1+ pitting edema above the sock line bilaterally NEURO/MSK: Gait is stable without use of a gait aid. LABORATORY DATA Recent Results (from the past 72 hour(s)) Albumin Collection Time: 08/16/24 10:12 AM Result Value Albumin, S 4.6 Alkaline Phosphatase Collection Time: 08/16/24 10:12 AM Result Value Alkaline Phosphatase, S 55 AST (Aspartate Aminotransferase) Collection Time: 08/16/24 10:12 AM Result Value Aspartate Aminotransferase (AST), S 25 Calcium, Total Collection Time: 08/16/24 10:12 AM Result Value Calcium, Total, S 9.5 CBC no call back, reflex T/S HGB <8 Collection Time: 08/16/24 10:12 AM Result Value Hemoglobin 15.1 Hematocrit 44.6 Erythrocytes 4.64 MCV 96.1 RBC Distrib Width 12.4 Platelet Count 115 (L) Leukocytes 4.4 Neutrophils 2.56 Lymphocytes 1.29 Monocytes 0.46 Eosinophils 0.03 Basophils <0.03 Creatinine with Estimated GFR Collection Time: 08/16/24 10:12 AM Result Value Creatinine 1.20 Estimated GFR (eGFR) 61 Immunoglobulin Free Light Chains Collection Time: 08/16/24 10:12 AM Result Value [place] Free Light Chain, S 1.26 Lambda Free Light Chain, S 1.28 [place]/Lambda FLC Ratio 0.9844 Potassium Collection Time: 08/16/24 10:12 AM Result Value Potassium, S 4.9 Sodium Collection Time: 10/01/24 10:12 AM Result Value Sodium, S 141 ALT (Alanine Aminotransferase) Collection Time: 08/16/24 10:12 AM Result Value Alanine Aminotransferase (ALT), S 20 Bilirubin, Total Collection Time: 08/16/24 10:12 AM Result Value Bilirubin, Total, S 1.4 (H) BUN (Blood Urea Nitrogen) Collection Time: 08/16/24 10:12 AM Result Value BUN (Blood Urea Nitrogen), S 17 LD (Lactate Dehydrogenase) Collection Time: 08/16/24 10:12 AM Result Value Lactate Dehydrogenase (LD), S 237 (H) Glucose, Random Collection Time: 08/16/24 10:12 AM Result Value Glucose, S 97 Protein, Total Collection Time: 08/16/24 10:12 AM Result Value Protein, Total, S 6.7 Uric Acid Collection Time: 08/16/24 10:12 AM Result Value Uric Acid, S 6.4 Phosphorus Inorganic Collection Time: 08/16/24 10:12 AM Result Value Phosphorus (Inorganic), S 3.5 ASSESSMENT / PLAN #1 Multiple myeloma, status post CARTITUDE-1 CART infusion on 09/13/2019 We discussed that the serum protein studies show normal free light chains and FLC ratio. The heavy chain immunoglobulins and m-spike were pending during the visit. CBC, calcium, and creatinine are stable. There are no new symptoms to suggest myeloma recurrence. CT skeletal survey was updated in April 2024. We will continue with quarterly evaluations. I met with the patient today to obtain updated consent for protocol [id number]. I explained theupdates to the study and the experimental procedures. The patient had an opportunity to ask questions and I have answered all of them. The patient has voluntarily signed the consent document in my pre sence. Plan Treatment: Observation, status post CARTITUDE-1 CAR-T, day 1 = 09/13/2019. Currently on long-term follow up protocol. Goals: Observation. Labs: CBC, CMP, monoclonal gammopathy monitoring, serum free light chains, and quantitative immunoglobulins. 24 hour UPEP annually. Imaging: CT skeletal survey will be updated with next return. Return: 3 months. Supportive Cares Infectious disease prophylaxis Continue acyclovir for herpes zoster and CMV prophylaxis. To be continued indefinitely. 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 There is no strong indication for re-initiation of anticoagulation at this time given that myeloma remainsin remission and he is off chemotherapy. #2 History of CMV and parvovirus B19 infections CMV has been undetected since June 06, 2020. Parvovirus was treated with monthly IVIG and serology was negative in November 2020. IVIG was then discontinued and plan to check parvovirus B19 if cytopenias worsen again. #3 Meningioma Neurology suggests ongoing annual MRI imaging through 2023 then every 1-3 years afterwards as clinically indicated. September 2023 MRI shows stability of the meningioma and Neurology recommended continuation of this plan. # Left knee pain He is working with his local care team for management. Not myeloma related. # Hypertension BP was elevated at 167/69 today. He will check daily BP and keep a log for the next two weeks and follow up with his primary care team if his systolic BP is in the 140s or higher consistently. Patient Education: Ready to learn, no apparent learning barriers were identified; learning preferences include listening. Explained diagnosis and treatment plan; patient expressed understanding of the content. I personally spent 30 minutes in care of the patient today. Time includes both non face to face andface to face patient care. documented in this encounter Plan of Treatment Scheduled Orders Name Type Priority Associated Diagnoses Orde r Schedule CBC with Differential, Blood Lab Routine Multiple Myeloma In Remission (HCC) Expected: 11/16/2024 (Approximate), Expires: 11/16/2025 Comprehensive Metabolic Panel Lab Routine Multiple Myeloma In Remission (HCC) Expected: 11/16/2024 (Approximate), Expires: 11/16/2025 Immunoglobulin Free Light Chains Lab Routine Multiple Myeloma In Remission (HCC) Expected: 11/16/2024 (Approximate), Expires: 11/16/2025 Quantitative M-protein Study Lab Routine Multiple Myeloma In Remission (HCC) Expected: 11/16/2024 (Approximate), Expires: 11/16/2025 Scheduled Referrals Name Type Priority Associated Diagnoses Order Schedule Hematology office visit (clinic) [facility]; Myeloma; General Outpatient Referral Routine Expected: 11/16/2024 (Approximate), Expires: 11/16/2025 documented as of this encounter Visit Diagnoses Diagnosis Multiple Myeloma In Remission (HCC)- Primary documented in this encounter Additional Health Concerns Assessment Noted Time PHQ-9 Depression Total Score: 2 03/17/20 14 12:33 PM CDT documented as of this encounter Care Teams Rustic Terrazzo Setter Relationship Specialty Start Date End Date Elsewhere, Pcp PCP - General Family Medicine 06/30/23 documented as of this encounter
--- OUTSIDE RECORDS SUMMARY | 2024-08-30 11:36 | XMS_ITS | Encounter Summary ---
Author Organization [facility] Address [address] [place] [id number] Care Team Providers Care Director Of Industrial Relations Name Role Phone Elsewhere, Pcp Primary Care Provider Unavailabl e Reason for Referral * Outpatient (Routine) - Closed Specialty Diagnoses / Procedures Referred By Contac t Referred To Contact Hematology Oncology Getachew Ruby M.D., Ph.D. [address] [place] [phone] Phone: tel: fax: [facility] Referral ID Status Reason Start Date Expiration Date Visits Re quested Visits Authorized [id number] Closed 05/05/2024 11/04/2025 1 1 Reason for Visit * Outpatient (Routine) - Closed Specialty Diagnoses / Procedures Referred By Contac t Referred To Contact Hematology Oncology Luz Freed P.A.-C., M.S. [address] [place] [phone] Phone: tel: fax: [facility] Referral ID Status Reason Start Date Expiration Date Visits Re quested Visits Authorized [id number] Closed 01/05/2024 07/06/2025 1 1 Encounter Details Date Type Department Care Team ([facility] st Contact Info) Description 05/05/2024 4:30 PM CDT Office Visit Division of Hematology in [place], [place] [address] [place] [address] Getachew Ruby M.D., Ph.D. 200 [place] [address] Multiple Myeloma In Remission (HCC) (Primary Dx) [...] file 09/30/2020 How often do you attend judaism or taoism serv ices? Patient declined 09/30/2020 Active Member [...] Living Expenses Not hard at all 09/07/2019 [facility] [place] of Occupat ional Health - Occupational Stress [...] your living situation today? I have a [facility] place to live 09/24/2023 Education Answer Date Recorded What is the highest level of school you have completed or the highest degree you have received? Bachelor's degree (e.g., BA, AB, BS) 09/30/2020 Sex and Gender Information Value Date Recorded Sex Assigned at Male 03/22/2020 11:41 AM CDT Legal Sex Male 4:37 AM [employer] Gender Identity Male 03/22/2020 11:41 AM CDT Sexual Orientation Straight 03/22/2020 11 :41 AM CDT documented as of this encounter Last Filed Vital Signs Vital Sign Reading Time Taken Comments Blood Pressure 131/80 05/05/2024 4:12 PM CDT Pulse 65 05/05/2024 4:12 PM CDT Temperature 36.9 ??C (98.4 ??F) 05/05/2024 4:12 PM CD T Respiratory Rate - - Oxygen Saturation - - Inhaled Oxygen Concentration - - Weight 78.6 kg (173 lb 4.5 oz) 05/05/2024 4:12 P M CDT Height 168.1 cm (5' 6.18) 05/05/2024 4:12 PM CD T Body Mass Index 27.82 05/05/2024 4:12 PM CDT documented in this encounter Progress Notes * Getachew Ruby M.D., Ph.D. - 05/05/2024 4:30 PM CDT SUBJECTIVE CHIEF COMPLAINT / REASON FOR VISIT Samuel Gleason is a 79 y.o. male who presents for evaluation of multiple myeloma, 1696 days after chimeric antigen receptor T-cell therapy with Carvykti on clinical trial. HISTORY OF PRESENT ILLNESS Oncology History Multiple Myeloma Not Having Achieved [...] pain when he was traveling to the [facility],and a few days after his trip back to the [facility], he developed a right lower extremity DVT, [...] 09/13/2019 - Research Study Participant Research Study: [facility];[id number];CARTITUDE-1;A Phase 1b-2, Open- Label Study of [id number], A Chimeric Antigen Receptor T-Cell (CAR-T) Therapy Directed Against BCMA in Subjects With Relapsed or R... Treatment Protocol: [facility] [id number] ( Cyclophosphamide / Fludarabine / JNJ- [id number] ) Mr. Gleason now returns for re-evaluation, 1696 days after chimeric antigen receptor T-cell therapy on clinical trial. He has been feeling well with a performance status of 0. Denies any cardiac, respiratory, gastrointestinal, genitourinary, or new musculoskeletal or neurologic symptoms. If he bends over he does have some back discomfort but this usually resolves with rest or sitting. Minimal neuropathy in his feet that is stable. No falls. No fever, chills or sweats and no recurrent infections. No bleeding or thrombotic events or rash. He has aware of an intermittent swelling in his left lower extremity that resolves spontaneously. Current Outpatient Medications: acetaminophen (TYLENOL) 500 mg [...] tablet by mouth daily., Disp: , Rfl: No current facility-administered medications for this visit. REVIEW OF SYSTEMS Musculoskeletal: Positive for back pain. Neurological: Positive for numbness or shooting pain in hands, arms, legs, or feet. All other systems reviewed and are negative. OBJECTIVE PHYSICAL EXAM Vitals reviewed. Constitutional General: He is not in acute distress. Appearance: Normal appearance. He is normal weight. He is not ill-appearing, toxic-appearing or diaphoretic. HENT Mouth/Throat: Mouth: Mucous membranes are moist. Pharynx: Oropharynx is clear. Eyes General: No scleral icterus. Conjunctiva/sclera: Conjunctivae normal. Pupils: Pupils are equal, round, and reactive to light. Cardiovascular Rate and Rhythm: Normal rate and regular rhythm. Pulses: Normal pulses. Heart sounds: Normal heart sounds. Pulmonary Effort: Pulmonary effort is normal. Breath sounds: Normal breath sounds. Abdominal General: Abdomen is flat. Bowel sounds are normal. Palpations: Abdomen is soft. Musculoskeletal General: No swelling, tenderness, deformity or signs of injury. Right lower leg: No edema. Left lower leg: Edema present. Lymphadenopathy Cervical: No cervical adenopathy. Skin General: Skin is warm. Capillary Refill: Capillary refill takes less than 2 seconds. Neurological General: No focal deficit present. Mental Status: He is alert and oriented to person, place, and time. Mental status is at baseline. Psychiatric Mood and Affect: Mood normal. Behavior: Behavior normal. Thought Content: Thought content normal. Judgment: Judgment normal. Minimal left lower extremity edema without any warmth or tenderness. ASSESSMENT / PLAN Recent Results (from the past 72 hour(s)) CBC with Differential, Blood Collection Time: 05/05/24 11:44 AM Result Value Hemoglobin 14.1 Hematocrit 42.2 Erythrocytes 4.42 MCV 95.5 RBC Distrib Width 12.9 Platelet Count 114 (L) Leukocytes 4.2 Neutrophils 2.19 Lymphocytes 1.55 Monocytes 0.42 Eosinophils 0.03 Basophils <0.03 Comprehensive Metabolic Panel Collection Time: 05/05/24 11:44 AM Result Value Potassium, S 4.5 Sodium, S 140 Chloride, S 104 Bicarbonate, S 27 Anion Gap 9 BUN (Blood Urea Nitrogen), S 22 Creatinine 1.35 Estimated GFR (eGFR) 53 (L) Calcium, Total, S 8.7 (L) Glucose, S 93 Protein, Total, S 6.4 Albumin, S 4.4 Aspartate Aminotransferase (AST), S 29 Alkaline Phosphatase, S 47 Alanine Aminotransferase (ALT), S 22 Bilirubin, Total, S 1.1 Immunoglobulin Free Light Chains Collection Time: 05/05/24 11:44 AM Result Value [place] Free Light Chain, S 1.52 Lambda Free Light Chain, S 1.66 [place]/Lambda FLC Ratio 0.[address] of the skeleton does not show any new bone disease or any increase any of the known bone lesions. #1 Multiple myeloma, status post CARTITUDE-1 CART infusion on 09/13/2019 We are waiting for monoclonal protein studies but I noticed that his hemoglobin has returned to normal. Clinically he is doing well. I will let him know once I have the results that are still pending. Plan to see him back in 3 months with repeat laboratory studies. Plan Treatment: Observation, status post CARTITUDE-1 CAR-T, day 1 = 09/13/2019. Currently on long-term follow up protocol. Goals: Observation. Labs: CBC, CMP, monoclonal gammopathy monitoring, serum free light chains, and quantitative immunoglobulins every other month. Return: 3 months. Supportive Cares Infectious disease prophylaxis Continue acyclovir for herpes zoster prophylaxis. He completed the Moderna COVID-19 vaccine series x4 on January 04, February 01, and July 11, 2021 and booster dose on December 24, 2021. He has received the bivalent COVID-19 vaccine and the fall influenza vaccine in 2022 this well as the RSV vaccine. He is aware that if he develops symptoms of a respiratory illness he must be seen promptly and tested for influenza, RSV and COVID and treated with the appropriate antiviral if positive. Thrombosis prophylaxis History of LLE DVT of [...] remainsin remission and he is off chemotherapy. He does not need to reinitiate apixaban. #2 History of CMV and parvovirus B19 infections CMV has been undetected since June 06, 2020, with most recent negative result on November 28, 2020. Parvovirus was treated with monthly IVIG and serology was negative in November 2020. IVIG was then discontinued and plan to check parvovirus B19 if cytopenias worsen again. #3 Meningioma Neurology suggests ongoing annual MRI imaging through 2023 then every 1-3 years afterwards as clinically indicated. September 2023 MRI shows stability of the meningioma. A request for a repeat MRI in October 05, [address] documented in this encounter Miscellaneous Notes * Addendum Note - Benitez Pina - 05/05/2024 4:30 PM CDTAddended by: BENITEZ PINA on: 06/27/2024 10:09 AM Modules accepted: Orders documented in this encounter Plan of Treatment Scheduled Referrals Name Type Priority Associated Diagnoses Order Schedule Hematology office visit (clinic) [facility]; Myeloma; General Outpatient Referral Routine Expected: 08/05/2024, Expires: 08/05/2025 documented as of this encounter Results * Immunoglobulin E (IgE) (08/16/2024 10:12 AM CDT) Immunoglobulin E (IgE), S 10.5 <=214 kU/L 08/16/2024 5:54 PM CDT SDSC Blood (Blood, Venous) 08/16/2024 10:12 AM CDT 08/16/2024 3:55 PM CDT us Getachew Ruby M.D., Ph.D. LAB BLOOD ADD-ON Final Result Performing Organization Address [facility]/ZIP Co de Phone Number [facility] [address] [place] [address] [facility] [address] [place] [address] * Immunoglobulin D (IgD) (08/16/2024 10:12 AM CDT) Immunoglobulin D (IgD), S <2 <=10 mg/dL 08/17/2024 9:30 AM CDT SDSC Blood (Blood, Venous) 08/16/2024 10:12 AM CDT 08/17/2024 6:17 AM CDT us Getachew Ruby M.D., Ph.D. LAB BLOOD ADD-ON Final Result Performing Organization Address [facility] Co de Phone Number [facility] [address] [place] [address] [facility] [address] [place] [address] * (ABNORMAL) Quantitative M-protein Study (08/16/2024 10:12 [...] monoclonal protein detected. 08/17/2024 2:54 PM CDT [facility] Comment: ----ADDITIONAL INFORMATION---- The submitted sample was [...] AM CDT 08/16/2024 3:17 PM CDT Narrative [facility] - 08/17/2024 2:54 PM CDT Specimen Information: Specimen ID: [id number] Specimen Type: Blood Specimen Collection Start Date: 08/16/2024 10:12 AM Specimen Received Date: 08/16/2024 ??3:17 PM Specimen ID: [id number] Specimen Type: Blood Specimen Collection Start Date: 08/16/2024 10:12 AM Specimen Received Date: 08/16/2024 ??1:55 PM Getachew Ruby M.D., Ph.D. LAB BLOOD ADD-ON Final Result [facility] [address] [place] [address] [facility] [address] [place] [address] [place] [address] [place] [address] [place] [address] [place] [address] * Sodium (08/16/2024 10:12 AM CDT) Sodium, S 141 135 - 145 mmol/L 08/16/2024 11:13 AM CDT DTL Blood (Blood, Venous) 08/16/2024 10:12 AM CDT 08/16/2024 10:51 AM CDT Getachew Ruby M.D., Ph.D. LAB BLOOD ADD-ON Final Result [facility] [address] [place] [address] * Potassium (08/16/2024 10:12 AM CDT) Potassium, S 4.9 3.6 - 5.2 mmol/L 08/16/2024 11:13 AM CDT DT Blood (Blood, Venous) 08/16/2024 10:12 AM CDT 08/16/2024 10:51 AM CDT Getachew Ruby M.D., Ph.D. LAB BLOOD ADD-ON Final Result Performing Organization Address City/[facility]/ZIP Co de Phone Number [facility] [address] [place], [place] [id number] [place] [address] 200 [place] [address] * Immunoglobulin Free Light Chains (08/16/2024 10:12 AM CDT) [place] Free Light Chain, S 1.26 0.3300 - 1.94 mg/dL 08/16/2024 3:36 PM CDT SDSC Lambda Free Light Chain, S 1.28 0.5700 - 2.63 mg/dL 08/16/2024 3:37 PM CDT SDS [place]/Lambda FLC Ratio 0.9844 0.2600 - 1.65 08/16/2024 3:37 PM CDT [facility] Blood (Blood, Venous) 08/16/2024 10:12 AM CDT 08/16/2024 1:59 PM CDT us Getachew Ruby M.D., Ph.D. LAB BLOOD ADD-ON Final Result [facility] [address] [place] [address] [facility] [address] [place] [address] * Creatinine with Estimated GFR (08/16/2024 10:12 AM CDT) Creatinine 1.20 0.74 - 1.35 mg/dL 08/16/2024 11:13 AM CDT DTL Estimated GFR (eGFR) 61 >=60 mL/min/BSA 08/16/2024 11:13 AM CDT DTL Comment: Estimated GFR calculated using the 2020 CKD_EPI creatinine equation. Blood (Blood, Venous) 08/16/2024 10:12 AM CDT 08/16/2024 10:51 AM CDT us Getachew Ruby M.D., Ph.D. LAB BLOOD ADD-ON Final Result [facility] 200 [place] [address], [facility] 200 [place] [address] * (ABNORMAL) CBC no call back, reflex [...] ADD-ON Fi nal Result Performing Organization Address City/[facility]/ZIP Co de Phone Number [facility] [address] [place] [address] * Calcium, Total (08/16/2024 10:12 AM CDT) [facility] Calcium, Total, S 9.5 8.8 - 10.2 mg/dL 08/16/2024 11:13 AM CDT DTL Blood (Blood, Venous) 08/16/2024 10:12 AM CDT 08/16/2024 10:51 AM CDT Getachew Ruby M.D., Ph.D. LAB BLOOD ADD-ON Final Result [facility] [address] [place] [address] * AST (Aspartate Aminotransferase) (08/16/2024 10:12 AM CDT) [facility] Aspartate Aminotransferase (AST), S 25 8 - 48 U/L 08/16/2024 11:13 AM CDT DTL Blood (Blood, Venous) 08/16/2024 10:12 AM CDT 08/16/2024 10:51 AM CDT Getachew Ruby M.D., Ph.D. LAB BLOOD ADD-ON Final Result [facility] [address] [place] [address] * Alkaline Phosphatase (08/16/2024 10:12 AM CDT) Alkaline Phosphatase, S 55 40 - 129 U/L 08/16/2024 11:13 AM CDT DTL Blood (Blood, Venous) 08/16/2024 10:12 AM CDT 08/16/2024 10:51 AM CDT Getachew Ruby M.D., Ph.D. LAB BLOOD ADD-ON Final Result Performing Organization Address City/[facility]/ZIP Co de Phone Number [facility] [address] [place] [address] * Albumin (08/16/2024 10:12 AM CDT) Albumin, S 4.6 3.5 - 5.0 g/dL 08/16/2024 11:13 AM CDT DTL Blood (Blood, Venous) 08/16/2024 10:12 AM CDT 08/16/2024 10:51 AM CDT Getachew Ruby M.D., Ph.D. LAB BLOOD ADD-ON Final Result [facility] [address] DTL [facility] [address] [place] [address] * Electrophoresis, Protein, 24 hour, Urine (08/03/2024 [...] URINE ORDERABLES Fi nal Result [facility] [address] [place] [address] [address] [address] [place] [address] [facility] [address] [place] [address] [place] [address] documented in this encounter Visit Diagnoses Diagnosis Multiple Myeloma In Remission (HCC)- Primary Multiple Myeloma In Remission (HCC) documented in this encounter Additional Health Concerns Assessment Noted Time PHQ-9 Depression Total Score: 2 03/17/20 14 12:33 PM CDT documented as of this encounter Care Teams Director Of Industrial Relations Relationship Specialty Start Date End Date Elsewhere, Pcp PCP - General Family Medicine 06/30/23 documented as of this encounter
[2024-08-30 14:11] LABS: Mononuclear WBC Body Fluid* 34 %; Polynuclear WBC Body Fluid* 66 %; RBC, Body Fluid* 1000 Cells/uL; WBC, Body Fluid* 5232 Cells/uL
[2024-08-30 14:26] LABS: BF Clarity* Slightly Cloudy; BF Color Xanthochromic; BF Total Volume* 10
== END 2024-08-30 11:21 | disposition home or self-care (01) ==
PROVIDERS: PCP Family Medicine; Visit Provider Orthopaedic Surgery Sports Medicine
DX: M17.12 Unilateral primary osteoarthritis, left knee (principal)
CPT/HCPCS: 87070; 87075; 87205; 89051; 89060